=== PATIENT | female | born 1930 | race Caucasian/White ===

== ENCOUNTER 2020-08-08 17:30 | Emergency (ER) | payer MEDICARE, BC ==
--- NOTE | 2020-08-08 18:02 | EDM.PDOC ---
ED HPI GENERAL MEDICAL PROBLEM - General Chief Complaint: Abdominal Pain Stated Complaint: VOMITING/DIARRHEA/BODY ACHES Time Seen by Provider: 08/08/20 18:01 Source of Information: Reports: Patient History Limitations: Reports: No Limitations - History of Present Illness INITIAL COMMENTS - FREE TEXT/NARRATIVE: 89-year-old female presents to the ED with 2 problems. She states that she believes she overdid it by working fairly long hours in the kitchen a few days ago and created low back pain. She is currently experiencing pain in her mid back which is constant and not be made better by rest standing or lying. She states she could not stay in bed last night and had to be in the easy chair the last 2 nights. She decided that she needed to come to the hospital because of persistent back pain an hour or so ago. She called her son to come and pick her up and as she was getting ready I out of her pajamas and into clothing to come to the hospital she experienced nausea and vomiting and then had brown watery diarrhea x1. She has not had much to eat or drink today either. She is on Prolia but denies ever being told that she had any compression fractures in her back. She describes the pain as constant and burning in nature. She cannot say 1 side is necessarily worse than the other. She states she has not been out of the house for the last few days and definitely has not been exposed to any bad food. Onset: Sudden Onset Date: 08/06/20 Duration: Day(s):, Constant, Getting Worse Location: Reports: Back (Lower back pain), Other (Sudden onset of nausea and vomiting and diarrhea stool prior to coming to the ED.) Quality: Reports: Ache, Burning Severity: Moderate (78 of the 10.) Improves with: Reports: None Worsens with: Reports: None Context: Reports: Other (Spontaneous occurrence of). Denies: Activity, Exercise, Lifting, Sick Contact, Trauma Associated Symptoms: Reports: Nausea/Vomiting (Sudden onset of nausea and vomiting of bilious material prior to coming to the hospital followed shortly thereafter by brown watery diarrhea. No blood). Denies: Confusion ( mid low back pain), Chest Pain, Cough, cough w sputum, Diaphoresis, Fever/Chills, Headaches, Loss of Appetite, Malaise Treatments RELAY MAN: Reports: Acetaminophen Generalized Pain Score (Numeric/FACES): 5 - Related Data Allergies Allergy/AdvReac Type Severity Reaction Status Date / Time oxycodone Allergy Confusion Verified 08/08/20 17:42 Home Meds: Home Meds Acetaminophen [Tylenol Extra Strength] 1,000 mg PO BEDTIME PRN 08/08/20 [History] Acetaminophen/oxyCODONE [Percocet 325-5 MG] 1 each PO Q6H #15 tab 08/08/20 [Rx] Budesonide [Entocort EC] 3 mg PO DAILY 08/08/20 [History] Calcium Phosphate Dibas/Vit D3 [Vitamin Y0-Nzchsur-Edla Tablet] 1 each PO DAILY 08/08/20 [History] Celecoxib 200 mg PO BID 08/08/20 [History] Cetirizine HCl [Zyrtec] 10 mg PO DAILY 08/08/20 [History] Citalopram Hydrobromide [Celexa] 20 mg PO DAILY 08/08/20 [History] Denosumab [Prolia] 1 dose SUBCUT ASDIRECTED 08/08/20 [History] Ferrous Sulfate 325 mg PO ASDIRECTED 08/08/20 [History] Gabapentin [Neurontin] 600 mg PO TID 08/08/20 [History] Levothyroxine Sodium [Levothyroxine] 100 mcg PO DAILY 08/08/20 [History] Magnesium Oxide [Magnesium] 400 mg PO DAILY 08/08/20 [History] Omeprazole 20 mg PO BIDAC 08/08/20 [History] Ondansetron [Zofran] 4 mg BUCCAL Q6H PRN #8 tab 08/08/20 [Rx] Zolpidem Tartrate 5 mg PO BEDTIME PRN 08/08/20 [History] carvediloL [Carvedilol] 3.125 mg PO BID 08/08/20 [History] dilTIAZem HCL [Cardizem] 120 mg PO DAILY 08/08/20 [History] valACYclovir [Valtrex] 1,000 mg PO TID #21 tab 08/08/20 [Rx] Past Medical History HEENT History: Reports: Other (See Below) Other HEENT History: glasses Respiratory History: Reports: COPD Gastrointestinal History: Reports: Cholelithiasis Genitourinary History: Reports: Renal Calculus [employer] History: Reports: Musculoskeletal History: Reports: Osteoarthritis Dermatologic History: Reports: Other (See Below) (Patient has had a bout of shingles involving her right upper shoulder and arm about 4 years ago.) - Past Surgical History GI Surgical History: Reports: Appendectomy, Cholecystectomy, Other (See Below) (Patient has had part of her bowel removed for unknown reason. She states she is also had surgery for a bleeding duodenal ulcer.) Female Surgical History: Reports: Hysterectomy, Salpingo-Oophorectomy Musculoskeletal Surgical History: Reports: Other (See Below) Other Musculoskeletal Surgeries/Procedures:: r hip repair Social & Family History - Tobacco Use Tobacco Use Status *Q: Never Tobacco User Second Hand Smoke Exposure: No - Caffeine Use Caffeine Use: Reports: Coffee - Recreational Drug Use Recreational Drug Use: No - Living Situation & Occupation Living situation: Reports: , Alone Occupation: Retired ED ROS GENERAL - Review of Systems Review Of Systems: See Below Constitutional: Reports: Malaise, Weakness, Fatigue, Decreased Appetite. Denies: Fever, Chills HEENT: Reports: Glasses Respiratory: Reports: Shortness of Breath. Denies: Wheezing (At times usually with exertion.), Pleuritic Chest Pain, Cough Cardiovascular: Reports: Blood Pressure Problem. Denies: Chest Pain, Claudication, Dyspnea on Exertion, Edema, Lightheadedness, Orthopnea, Palpitations Endocrine: Reports: Fatigue GI/Abdominal: Reports: Constipation, Diarrhea (Occasional problems with constipation. Diarrhea today.), Nausea, Vomiting (Nausea and vomiting x1 of bilious material just prior to coming to the ED.) : Reports: Frequency, Incontinence (Occasional urge and stress induced incontinence.) Musculoskeletal: Reports: Back Pain (2 to 3-day history of constant aching mid back without any known injuries.), Joint Pain (He sips neck at times.) Skin: Reports: No Symptoms Neurological: Reports: No Symptoms Psychiatric: Reports: No Symptoms Hematologic/Lymphatic: Reports: No Symptoms Immunologic: Reports: No Symptoms ED EXAM, GI/ABD - Physical Exam Exam: See Below Exam Limited By: No Limitations General Appearance: Alert, WD/WN, No Apparent Distress, Other (Temperature is 35.9 degrees. Heart rate 95 and sinus. Respiratory was 20 with O2 sats of 97% on room air. BP 160/94) Eyes: Bilateral: Normal Appearance (Mild blepharal pallor. No scleral icterus.) Throat/Mouth: Normal Inspection, Normal Oropharynx, Other Head: Atraumatic, Normocephalic (Tongue is mildly dry and coated.) Neck: Normal Inspection, Supple, Non-Tender, Full Range of Motion. No: Carotid Bruit, Lymphadenopathy (L), Lymphadenopathy (R) Respiratory/Chest: No Respiratory Distress, Lungs Clear, Normal Breath Sounds, No Accessory Muscle Use, Decreased Breath Sounds (Breath sounds are mildly diminished to the lower 20% lung vital bilaterally.) Cardiovascular: Regular Rate, Rhythm, No Edema, No Gallop, No Murmur, No Rub. No: Normal Peripheral Pulses ( No adventitial sounds appreciated.) GI/Abdominal Exam: Soft, Non-Tender, No Organomegaly, No Abnormal Bruit, No Mass, Pelvis Stable, Abnormal Bowel Sounds (Bowel sounds are little hyperactive throughout the abdomen.), Other (She also reports that she did have a segment of small bowel removed at one time . She cannot remember the reason why but it was not for cancer). No: Guarding, Rigid, Rebound Back Exam: Other (On inspection of her back patient has new onset vesicles of shingles that do past slightly across the midline in the thoracic 9 and 10 dermatome worse on the right side. Lesions do not expand to her right upper abdomen yet.) Extremities: Normal Inspection, Normal Range of Motion, Non-Tender, No Pedal Edema, Other Neurological: Alert (Evidence of osteoarthritic changes both hips and knees.), Oriented, CN II-XII Intact, Normal Cognition Psychiatric: Normal Affect, Normal Mood Skin Exam: Warm, Dry, Zoster-Like Rash (Patient has herpes zoster rash right mid back in the distribution of T9-T10 dermatome to the right side. One lesion does cross the midline which is always concerning for possible underlying malignancy. Secondly she reports this is her second bout of shingles in the last 4 years.) Course - Vital Signs Last Recorded V/S: Last Vital Signs Temp 35.9 C L 08/08/20 17:44 Pulse 95 08/08/20 17:44 Resp 20 08/08/20 17:44 BP 160/94 H 08/08/20 17:44 Pulse Ox 97 08/08/20 17:44 - Orders/Labs/Meds Orders: Active Orders 24 hr Category Date Time Status COMPREHENSIVE METABOLIC PN,CMP [CHEM] Stat Lab 08/08/20 18:00 Received CRP [C-REACTIVE PROTEIN] [CHEM] Stat Lab 08/08/20 18:00 Received MAGNESIUM [CHEM] Stat Lab 08/08/20 18:00 Received TROPONIN I [CHEM] Stat Lab 08/08/20 18:00 Received URINALYSIS W/MICROSCOPIC [UA W/MICROSCOPIC] [URIN] Stat Lab 08/08/20 17:49 Results Dextrose 5%-0.9% NaCl [Dextrose 5%-Normal Saline] 1,000 Med 08/08/20 18:30 Active ml IV ASDIRECTED Medication Orders Dextrose/Sodium Chloride (Dextrose 5%-Normal Saline) 1,000 mls @ 500 mls/hr IV ASDIRECTED AGUSTÍN Last Admin: 08/08/20 18:24 Dose: 500 mls/hr Documented by: MARLON Labs: Laboratory Tests 08/08/20 08/08/20 Range/Units 17:49 18:00 WBC 10.18 H (3.98-10.04) K/mm3 RBC 4.58 (3.98-5.22) M/mm3 Hgb 13.2 (11.2-15.7) gm/dl Hct 41.4 (34.1-44.9) % MCV 90.4 (79.4-94.8) fl MCH 28.8 (25.6-32.2) pg MCHC 31.9 L (32.2-35.5) g/dl RDW Std Deviation 48.6 H (36.4-46.3) fL Plt Count 209 (182-369) K/mm3 MPV 9.2 L (9.4-12.3) fl Neut % (Auto) 67.1 (34.0-71.1) % Lymph % (Auto) 21.0 (19.3-51.7) % Reynolds % (Auto) 10.6 (4.7-12.5) % Eos % (Auto) 0.6 L (0.7-5.8) Baso % (Auto) 0.2 (0.1-1.2) % Neut # (Auto) 6.83 H (1.56-6.13) K/mm3 Lymph # (Auto) 2.14 (1.18-3.74) K/mm3 Reynolds # (Auto) 1.08 H (0.24-0.36) K/mm3 Eos # (Auto) 0.06 (0.04-0.36) K/mm3 Baso # (Auto) 0.02 (0.01-0.08) K/mm3 Urine Color Yellow (Yellow) Urine Appearance Clear (Clear) Urine pH 7.0 (5.0-8.0) Ur Specific [place] 1.020 (1.005-1.030) Urine Protein 1+ H (Negative) Urine Glucose (UA) Negative (Negative) Urine Ketones Negative (Negative) Urine Occult Blood Negative (Negative) Urine Nitrite Positive H (Negative) Urine Bilirubin Negative (Negative) Urine Urobilinogen 0.2 (0.2-1.0) Ur Leukocyte Esterase Negative (Negative) Meds: Medications Generic Name Dose Route Start Last Admin Trade Name Freq PRN Reason Stop Dose Admin Dextrose/Sodium Chloride 1,000 mls @ 500 mls/hr 08/08/20 18:30 08/08/20 18:24 Dextrose 5%-Normal Saline IV 500 mls/hr ASDIRECTED AGUSTÍN Administration Discontinued Medications Generic Name Dose Route Start Last Admin Trade Name Freq PRN Reason Stop Dose Admin Hydromorphone HCl 0.25 mg 08/08/20 18:17 08/08/20 18:25 Hydromorphone 0.5 Mg/0.5 Ml Syringe IVPUSH 08/08/20 18:18 0.25 mg ONETIME ONE Administration Ondansetron HCl 4 mg 08/08/20 18:17 08/08/20 18:24 Ondansetron 4 Mg/2 Ml Sdv IVPUSH 08/08/20 18:18 4 mg ONETIME ONE Administration - Radiology Interpretation Free Text/Narrative:: 89-year-old female presents to the ED for evaluation of persistent mid back pain for the last 2 to 3 days. She felt she overdid it in the kitchen by working too hard making meals for her sons 3 days ago. At present she no position is comfortable. She could not get comfortable in bed last night and spent the night in the easy chair but which did not relieve her pain either. She decided to come to the hospital and call one of her sons to bring her to the hospital this evening. She states while she was getting ready to come to the hospital she suddenly had to vomit of bilious material without blood and then she had a loose watery diarrhea stool. Again no blood. On examination she has in a benign abdomen with very active bowel sounds. On examination of her back she has new onset vesicles of shingles in the T9-T10 dermatome on the right side. One lesion does cross the midline to the left side of the spine. Plan she will be given IV D5 normal saline at 500 mils an hour. She will be given Zofran 4 mg IV for nausea relief and 0.25 mg of Dilaudid for back pain relief. The plan ultimately will be to send her home with Zofran 4 mg sublingual every 6 hours. For nausea relief if so needed. Plan will be to place her on valacyclovir 1 g 3 times daily for 1 week and low-dose pain medication such as Percocet 5/325 mg strength for pain relief in her back. Diet will be primarily clear fluids and lactose-free. Plan a urinalysis CBC CRP and will be ordered. - Re-Assessments/Exams Free Text/Narrative Re-Assessment/Exam: 08/08/20 18:55 White count is 10.18 slightly elevated. There is 67% neutrophils on the auto differential. Hemoglobin is 13.2 with hematocrit of 41.4. Platelet count 209,000. Sodium is slightly low at 132 with a potassium of 4.0. Chloride 95 with a bicarb of 28. Anion gap is 13.0 BUN is 26 with a creatinine of 1.0 and a GFR of 52. BUN/creatinine ratio is slightly elevated at 26.0. Glucose is 128. Calcium is 8.9. Magnesium slightly low at 1.7. Liver function is normal. Troponin I is less than 0.034. CRP is less than 0.2. Total protein is 6.8 with a albumin fraction of 3.7. Urinalysis shows positive nitrates 1+ protein and many bacteria but leukocyte esterase is negative and there are no white cells on the micro. 08/08/20 19:07 I was able to discuss the findings with the patient and her son who is in the room with her at this time. The plan will be to place her on a relatively clear fluid diet avoiding dairy products until stools are formed back up. She is slightly low on her sodium at 132 and she does not like Gatorade or Powerade. She prefers to try a combination of tomato juice and orange juice with which will likely work to suffice for electrolyte replacement. Plan will be to place her on valacyclovir 1 g 3 times daily for the next 7 days. Zofran 4 mg under the tongue every 6 hours as needed for nausea or vomiting relief. Percocet 5/325 mg strength 1/2 to 1 tablet every 4-6 hours as necessary for back pain which should also slow down any further diarrhea. Departure - Departure Time of Disposition: 19:08 Disposition: Home, Self-Care 01 Condition: Fair Clinical Impression: Gastroenteritis Back pain Qualifiers: Back pain location: thoracic back pain Chronicity: acute Back pain laterality: right Qualified Code(s): M54.6 - Pain in thoracic spine Herpes zoster Qualifiers: Herpes zoster complications: without complications Qualified Code(s): B02.9 - Zoster without complications - Discharge Information *PRESCRIPTION DRUG MONITORING PROGRAM REVIEWED*: Not Applicable *COPY OF PRESCRIPTION DRUG MONITORING REPORT IN PATIENT RACHID: Not Applicable Prescriptions: Acetaminophen/oxyCODONE [Percocet 325-5 MG] 1 each PO Q6H #15 tab valACYclovir [Valtrex] 1,000 mg PO TID #21 tab Ondansetron [Zofran] 4 mg BUCCAL Q6H PRN #8 tab PRN Reason: nausea or vomiting Instructions: Viral Gastroenteritis, Adult, [id number], Shingles, Diarrhea, Adult, Pain Medicine Instructions, [id number] Referrals: Timi Casanova MD [Primary Care Provider] - Forms: ED Department Discharge Additional Instructions: Evaluation in the emergency room today in regards to persistent mid low back pain for the last 2 to 3 days. No position is comfortable. Development of nausea vomiting and one diarrhea stool just prior to coming into the hospital this evening. No associated fever or other signs of illness identified. Lab work done through the emergency room reveals no abnormalities or signs of infection including the urinalysis which was normal. It is suspect you may have a viral gastroenteritis or simply this may have occurred from not having much to eat or drink so far today. The cause of your back pain was identified to be shingles particularly to the right side of your mid back in the distribution of thoracic 9 and thoracic 10 dermatome. You may get further skin lesions around the side of your chest and headed down towards the umbilicus or bellybutton over the next few days. No tropical medicine is to be a placed on these lesions. They will break out for period of about a week before they crust over. You are considered contagious to others if the lesions are oozing fluid. It is usually reynoso to wear a T-shirt and then change it every day. You were treated with a half a liter of IV fluids in the ED to rehydrate you. You received a small dose of pain medication for your back pain called Dilaudid 0.025 mg and medicine Zofran intravenously for nausea relief. Diet should be clear fluids. This should include juices such as tomato juice or orange juice as you suggested or Gatorade or Powerade diluted one third with water and two thirds Gatorade or Powerade usually 4 ounces sipped per hour will prevent dehydration if diarrhea and vomiting persist. Medications are to be valacyclovir 1 g tablet 3 times daily for the next week for the shingles rash. It is primarily used to prevent the long-term pain that it can occur from shingles called postherpetic neuralgia. Pain medicine is to be Percocet 5/325 mg strength 1/2 to 1 tablet every 6 hours as necessary for pain relief in your back. This usually also will slow down diarrhea. Zofran 4 mg can be taken under your tongue every 6 hours if needed for further nausea or vomiting relief. Follow-up with personal physician if any further problems occur. Expect back pain to slowly get better over the next 10 to 14 days. I would suggest follow-up with your primary care physician in about 7 to 10 days time. Sepsis Event Note (ED) - Evaluation Sepsis Screening Result: No Definite Risk - Focused Exam Vital Signs: Vital Signs Temp Pulse Resp BP Pulse Ox 08/08/20 17:44 35.9 C L 95 20 160/94 H 97 - My Orders Last 24 Hours: My Active Orders 08/08/20 17:49 URINALYSIS W/MICROSCOPIC [UA W/MICROSCOPIC] [URIN] Stat 08/08/20 18:00 COMPREHENSIVE METABOLIC PN,CMP [CHEM] Stat CRP [C-REACTIVE PROTEIN] [CHEM] Stat MAGNESIUM [CHEM] Stat TROPONIN I [CHEM] Stat 08/08/20 18:30 Dextrose 5%-0.9% NaCl [Dextrose 5%-Normal Saline] 1,000 ml IV ASDIRECTED - Assessment/Plan Last 24 Hours: My Active Orders 08/08/20 17:49 URINALYSIS W/MICROSCOPIC [UA W/MICROSCOPIC] [URIN] Stat 08/08/20 18:00 COMPREHENSIVE METABOLIC PN,CMP [CHEM] Stat CRP [C-REACTIVE PROTEIN] [CHEM] Stat MAGNESIUM [CHEM] Stat TROPONIN I [CHEM] Stat 08/08/20 18:30 Dextrose 5%-0.9% NaCl [Dextrose 5%-Normal Saline] 1,000 ml IV ASDIRECTED
[2020-08-08] MEDS ORDERED: HYDROmorphone 0.5 MG/0.5 ML Syringe IVPUSH ONE (18:17)
[2020-08-08] MEDS ORDERED: Ondansetron 4 MG/2 ML SDV IVPUSH ONE (18:17)
[2020-08-08] MEDS ORDERED: Dextrose 5%-0.9% NaCl 1,000 ML IV SCH (18:30)
== END 2020-08-08 19:30 | disposition home or self-care (01) ==
LOC: JD.ED 17:30
DX: K52.9 Noninfective gastroenteritis and colitis, unspecified (principal); M54.6 Pain in thoracic spine; B02.9 Zoster without complications; Z88.5 Allergy status to narcotic agent; Z79.899 Other long term (current) drug therapy
CPT/HCPCS: 36415; 80053; 81001; 83735; 84484; 85025; 86140; 96374; 96375; 99284; J1170; J2405; J7042

== ENCOUNTER 2020-12-06 21:22 | Emergency (ER) | payer MEDICARE, BC ==
[2020-12-06] MEDS ORDERED: Ondansetron 4 MG/2 ML SDV IVPUSH ONE (23:59)
[2020-12-07] MEDS ORDERED: HYDROmorphone 0.5 MG/0.5 ML Syringe IVPUSH ONE (00:01)
--- NOTE | 2020-12-07 00:05 | EDM.PDOC ---
ED HPI GENERAL MEDICAL PROBLEM - General Chief Complaint: Abdominal Pain Stated Complaint: HEADACHE/STOMACH PAIN/NAUSEA Time Seen by Provider: 12/06/20 23:44 Source of Information: Reports: Patient History Limitations: Reports: No Limitations - History of Present Illness INITIAL COMMENTS - FREE TEXT/NARRATIVE: Mrs. Dumont is a very pleasant 89-year-old woman who now presents the ED stating that she developed a headache and nausea around 19:00 tonight, shortly after eating dinner at 18:00, then developed generalized abdominal pain and bilateral hand pain about 2 hours ago. She describes the abdominal pain as "nagging" in character. She states that it is constant, and she has not identified any modifiers. She denies having associated chest pain, palpitations, cough, dy spnea, vomiting, constipation, diarrhea, or urinary symptoms. The patient states that she had similar symptoms a few months ago, and was admitted to this hospital. She does not recall what the diagnosis was, but her symptoms resolved on their own. Review of prior medical records finds that the patient was seen in this ED on 08/08/2020 with a complaint of low back pain followed by nausea, vomiting, and diarrhea. There is no mention of abdominal pain, and her abdomen was nontender on examination. She was not admitted to the hospital. The only other time that the patient was here was in March 2013. Here in the ED tonight, the patient's initial BP is found to be modestly elevated at 158/95, otherwise, she is hemodynamically stable, afebrile, saturating 95% on room air. She appears to be comfortable, no acute distress. Prior to tonight, the patient denies having a recent fever, chills, sore throat, ear pain, nasal or sinus congestion, cough, dyspnea, chest pain, palpitations, nausea, vomiting, constipation, diarrhea, abdominal pain, urinary symptoms, recent weight gain or weight loss, recent bloody bowel movements or black bowel movements, recent joint aches, headaches, or rashes. I reviewed the PMHx/PSHx/SocHx, which was reviewed with the patient by the RN. The patient's PCP is Dr. Nishant Niño, although she also sees Dr. Timi Casanova. She has received 2 COVID vaccinations. Abdomen Pain Score (Numeric/FACES): 5 - Related Data Allergies Allergy/AdvReac Type Severity Reaction Status Date / Time oxycodone Allergy Confusion Verified 12/06/20 21:51 Home Meds: Home Meds Acetaminophen [Tylenol Extra Strength] 1,000 mg PO BEDTIME PRN 08/08/20 [History] Acetaminophen/oxyCODONE [Percocet 325-5 MG] 1 each PO Q6H #15 tab 08/08/20 [Rx] Budesonide [Entocort EC] 3 mg PO DAILY 08/08/20 [History] Calcium Phosphate Dibas/Vit D3 [Vitamin C2-Uvevvji-Nnnm Tablet] 1 each PO DAILY 08/08/20 [History] Celecoxib 200 mg PO BID 08/08/20 [History] Cetirizine HCl [Zyrtec] 10 mg PO DAILY 08/08/20 [History] Citalopram Hydrobromide [Celexa] 20 mg PO DAILY 08/08/20 [History] Denosumab [Prolia] 1 dose SUBCUT ASDIRECTED 08/08/20 [History] Ferrous Sulfate 325 mg PO ASDIRECTED 08/08/20 [History] Gabapentin [Neurontin] 600 mg PO TID 08/08/20 [History] Levothyroxine Sodium [Levothyroxine] 100 mcg PO DAILY 08/08/20 [History] Magnesium Oxide [Magnesium] 400 mg PO DAILY 08/08/20 [History] Omeprazole 20 mg PO BIDAC 08/08/20 [History] Ondansetron [Zofran] 4 mg BUCCAL Q6H PRN #8 tab 08/08/20 [Rx] Zolpidem Tartrate 5 mg PO BEDTIME PRN 08/08/20 [History] carvediloL [Carvedilol] 3.125 mg PO BID 08/08/20 [History] dilTIAZem HCL [Cardizem] 120 mg PO DAILY 08/08/20 [History] Past Medical History HEENT History: Reports: Other (See Below) Other HEENT History: glasses Respiratory History: Reports: COPD Gastrointestinal History: Reports: Cholelithiasis Genitourinary History: Reports: Renal Calculus [employer]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: Musculoskeletal History: Reports: Osteoarthritis Dermatologic History: Reports: Other (See Below) - Infectious Disease History Infectious Disease History: Reports: Shingles - Past Surgical History GI Surgical History: Reports: Appendectomy, Cholecystectomy, Other (See Below) Female Surgical History: Reports: Hysterectomy, Salpingo-Oophorectomy Musculoskeletal Surgical History: Reports: Other (See Below) Other Musculoskeletal Surgeries/Procedures:: r hip repair Social & Family History - Tobacco Use Tobacco Use Status *Q: Former Tobacco User Years of Tobacco use: 29 Packs/Tins Daily: 0.5 Month/Year Tobacco Last Used: Quit 1982 Tobacco Use Comment: Started smoking 1953 - Caffeine Use Caffeine Use: Reports: Coffee - Alcohol Use Alcohol Use History: No - Recreational Drug Use Recreational Drug Use: No - Living Situation & Occupation Living situation: Reports: , with Family (Nephew) Occupation: Retired ED ROS GENERAL - Review of Systems Review Of Systems: Comprehensive ROS is negative, except as noted in HPI. ED EXAM, GI/ABD - Physical Exam Exam: See Below Exam Limited By: No Limitations General Appearance: Alert, WD/WN, No Apparent Distress Eyes: Bilateral: Normal Appearance, EOMI Ears: Normal External Exam, Hearing Grossly Normal Nose: Normal Inspection Throat/Mouth: Normal Inspection, Normal Lips, Normal Voice, No Airway Compromise Head: Atraumatic, Normocephalic Neck: Normal Inspection, Full Range of Motion Respiratory/Chest: No Respiratory Distress, Lungs Clear, Normal Breath Sounds, No Accessory Muscle Use Cardiovascular: Normal Peripheral Pulses, Regular Rate, Rhythm, No Edema, No Gallop, No JVD, No Murmur, No Rub GI/Abdominal Exam: Normal Bowel Sounds, Soft, No Organomegaly, No Distention, No Abnormal Bruit, No Mass, Tender (Mild to moderate, generalized, non-focal) Back Exam: Normal Inspection, Full Range of Motion, NT Extremities: Normal Inspection, Normal Range of Motion, No Pedal Edema, Normal Capillary Refill Neurological: Alert, Oriented, Normal Cognition, No Motor/Sensory Deficits Psychiatric: Normal Affect Skin Exam: Warm, Dry, Intact, Normal Color, No Rash Course - Vital Signs Last Recorded V/S: Last Vital Signs Temp 36.6 C 12/06/20 21:47 Pulse 84 12/06/20 21:47 Resp 14 12/06/20 21:47 BP 158/95 H 12/06/20 21:47 Pulse Ox 95 12/06/20 21:47 - Orders/Labs/Meds Orders: Active Orders 24 hr Category Date Time Status Abdomen Pelvis w Cont [CT] Stat Exams 12/06/20 23:59 Taken Sodium Chloride 0.9% [Normal Saline] 1,000 ml Med 12/07/20 00:15 Active IV ASDIRECTED Medication Orders Sodium Chloride (Normal Saline) 1,000 mls @ 100 mls/hr IV ASDIRECTED AGUSTÍN Last Admin: 12/07/20 00:08 Dose: 100 mls/hr Documented by: RADHA Labs: Laboratory Tests 12/07/20 12/07/20 12/07/20 Range/Units 00:04 00:04 00:18 WBC 6.90 (3.98-10.04) K/mm3 RBC 3.79 L (3.98-5.22) M/mm3 Hgb 10.9 L D (11.2-15.7) gm/dl Hct 34.9 (34.1-44.9) % MCV 92.1 (79.4-94.8) fl MCH 28.8 (25.6-32.2) pg MCHC 31.2 L (32.2-35.5) g/dl RDW Std Deviation 45.1 (36.4-46.3) fL Plt Count 248 (182-369) K/mm3 MPV 9.0 L (9.4-12.3) fl Neutrophils % (Manual) 66 H (40-60) % Band Neutrophils % 0 (0-10) % Lymphocytes % (Manual) 20 (20-40) % Atypical Lymphs % 0 % Monocytes % (Manual) 12 H (2-10) % Eosinophils % (Manual) 1 (0.7-5.8) % Basophils % (Manual) 1 (0.1-1.2) Platelet Estimate Adequate Hypochromasia 1+ slight Poikilocytosis 1+ slight Anisocytosis 1+ slight Ovalocytes 1+ slight RBC Morph Comment Abnormal Sodium 136 (136-145) mEq/L Potassium 4.8 (3.5-5.1) mEq/L Chloride 103 (98-107) mEq/L Carbon Dioxide 25 (21-32) mEq/L Anion Gap 12.8 (5-15) BUN 30 H (7-18) mg/dL Creatinine 1.0 (0.55-1.02) mg/dL Est Cr Clr Drug Dosing 36.40 mL/min Estimated GFR (MDRD) 52 (>60) mL/min BUN/Creatinine Ratio 30.0 H (14-18) Glucose 112 H (70-99) mg/dL Calcium 9.1 (8.5-10.1) mg/dL Magnesium 1.8 (1.8-2.4) mg/dL Total Bilirubin 0.3 (0.2-1.0) mg/dL AST 14 L (15-37) U/L ALT 14 (14-59) U/L Alkaline Phosphatase 45 L (46-116) U/L Troponin I < 0.017 (0.00-0.056) ng/mL Total Protein 6.6 (6.4-8.2) g/dl Albumin 3.6 (3.4-5.0) g/dl Globulin 3.0 gm/dL Albumin/Globulin Ratio 1.2 (1-2) Lipase 405 H (73-393) U/L Urine Color Light yellow (Yellow) Urine Appearance Clear (Clear) Urine pH 7.0 (5.0-8.0) Ur Specific [place] 1.025 (1.005-1.030) Urine Protein Negative (Negative) Urine Glucose (UA) Negative (Negative) Urine Ketones Negative (Negative) Urine Occult Blood Negative (Negative) Urine Nitrite Negative (Negative) Urine Bilirubin Negative (Negative) Urine Urobilinogen 0.2 (0.2-1.0) Ur Leukocyte Esterase Negative (Negative) Urine RBC 0-5 (0-5) /hpf Urine WBC 0-5 (0-5) /hpf Ur Squamous Epith Cells Not seen (0-5) /hpf Urine Bacteria Moderate H (FEW) /hpf Urine Mucus Not seen (FEW) /hpf SARS-CoV-2 RNA (LEI) (NEGATIVE) 12/07/20 Range/Units 00:29 WBC (3.98-10.04) K/mm3 RBC (3.98-5.22) M/mm3 Hgb (11.2-15.7) gm/dl Hct (34.1-44.9) % MCV (79.4-94.8) fl MCH (25.6-32.2) pg MCHC (32.2-35.5) g/dl RDW Std Deviation (36.4-46.3) fL Plt Count (182-369) K/mm3 MPV (9.4-12.3) fl Neutrophils % (Manual) (40-60) % Band Neutrophils % (0-10) % Lymphocytes % (Manual) (20-40) % Atypical Lymphs % % Monocytes % (Manual) (2-10) % Eosinophils % (Manual) (0.7-5.8) % Basophils % (Manual) (0.1-1.2) Platelet Estimate Hypochromasia Poikilocytosis Anisocytosis Ovalocytes RBC Morph Comment Sodium (136-145) mEq/L Potassium (3.5-5.1) mEq/L Chloride (98-107) mEq/L Carbon Dioxide (21-32) mEq/L Anion Gap (5-15) BUN (7-18) mg/dL Creatinine (0.55-1.02) mg/dL Est Cr Clr Drug Dosing mL/min Estimated GFR (MDRD) (>60) mL/min BUN/Creatinine Ratio (14-18) Glucose (70-99) mg/dL Calcium (8.5-10.1) mg/dL Magnesium (1.8-2.4) mg/dL Total Bilirubin (0.2-1.0) mg/dL AST (15-37) U/L ALT (14-59) U/L Alkaline Phosphatase (46-116) U/L Troponin I (0.00-0.056) ng/mL Total Protein (6.4-8.2) g/dl Albumin (3.4-5.0) g/dl Globulin gm/dL Albumin/Globulin Ratio (1-2) Lipase (73-393) U/L Urine Color (Yellow) Urine Appearance (Clear) Urine pH (5.0-8.0) Ur Specific [place] (1.005-1.030) Urine Protein (Negative) Urine Glucose (UA) (Negative) Urine Ketones (Negative) Urine Occult Blood (Negative) Urine Nitrite (Negative) Urine Bilirubin (Negative) Urine Urobilinogen (0.2-1.0) Ur Leukocyte Esterase (Negative) Urine RBC (0-5) /hpf Urine WBC (0-5) /hpf Ur Squamous Epith Cells (0-5) /hpf Urine Bacteria (FEW) /hpf Urine Mucus (FEW) /hpf SARS-CoV-2 RNA (LEI) Negative (NEGATIVE) Meds: Medications Generic Name Dose Route Start Last Admin Trade Name Freq PRN Reason Stop Dose Admin Sodium Chloride 1,000 mls @ 100 mls/hr 12/07/20 00:15 12/07/20 00:08 Normal Saline IV 100 mls/hr ASDIRECTED AGUSTÍN Administration Discontinued Medications Generic Name Dose Route Start Last Admin Trade Name Shanda PRN Reason Stop Dose Admin Diatrizoate Meglum/Diatrizoate Sod 120 ml 12/07/20 00:52 12/07/20 01:46 Diatrizoate Meglumine/Diatrizoate Sodium 37% 120 Ml Bottle PO 12/07/20 00:53 120 ml ONETIME ONE Administration Hydromorphone HCl 0.5 mg 12/07/20 00:01 12/07/20 00:19 Hydromorphone 0.5 Mg/0.5 Ml Syringe IVPUSH 12/07/20 00:02 0.5 mg ONETIME ONE Administration Iopamidol 100 ml 12/07/20 00:52 12/07/20 01:46 Iopamidol 612 Mg/Ml 100 Ml Bottle IVPUSH 12/07/20 00:53 100 ml ONETIME ONE Administration Ondansetron HCl 4 mg 12/06/20 23:59 12/07/20 00:08 Ondansetron 4 Mg/2 Ml Sdv IVPUSH 12/07/20 00:00 4 mg ONETIME ONE Administration Ondansetron HCl 4 mg 12/07/20 01:53 12/07/20 02:01 Ondansetron 4 Mg/2 Ml Sdv IVPUSH 12/07/20 01:54 4 mg ONETIME ONE Administration Sodium Chloride 10 ml 12/07/20 00:52 12/07/20 01:47 Sodium Chloride 0.9% 10 Ml Sdv FLUSH 12/07/20 00:53 10 ml ONETIME ONE Administration - Re-Assessments/Exams Free Text/Narrative Re-Assessment/Exam: 12/07/20 00:02 I have ordered a work-up and includes numerous blood tests, a urinalysis by quick catheter, and a CT of the abdomen and pelvis with oral and IV contrast. In the event that the patient requires admission to the hospital or transfer to an outside facility, I have also ordered a swab for the SARS-CoV-2 virus. In the meantime, the patient will be treated with judicious IV Dilaudid, IV Zofran, and IV fluid. 12/07/20 01:58 The patient's CBC is remarkable for a Hgb slightly depressed at 10.9, with a Hct within normal limits at 34.9, and the remainder of her CBC being unremarkable. Her CMP is remarkable for a BUN slightly elevated at 30 with a Cr within normal limits at 1.0, and slight hyperglycemia of 112, with remainder of her CMP being unremarkable. Her magnesium level is within normal limits at 1.8. Her lipase is moderately elevated at 405. Her troponin is undetectably low. Her urinalysis is remarkable for moderate bacteria, with the remainder of her urinalysis being unremarkable. Her swab for the SARS-CoV-2 virus is negative. Notified that upon return from CT, the patient began vomiting. I ordered additional Zofran. 12/07/20 03:58 CT of the abdomen and pelvis with oral and IV contrast is read by Samanta as "Dilated common duct and intrahepatic radicles but without a definite stone identified. 2. Hepatic steatosis. 3. 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 Case discussed with Dr. Barrios at 04:03. 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 She recommended an outpatient MRI, plus referral for an ERCP for a brushing and possible stent. She does not feel that any of these are urgent, therefore the patient can follow-up with Dr. Casanova this week to make arrangements. 12/07/20 04:20 Test results and my conversation with Dr. Barrios discussed with the patient. I will discharge her home with [facility] prescriptions for both [place] and Zofran. I will have the patient call Dr. Casanova's office tomorrow (Tuesday), to make an appointment to see him this week. She is to take her discharge instructions with her when she sees him, so that he can understand what the issue is. The patient also wanted me to look at a rash that she has had under her breasts and on her vulva for the past few months. She has a relatively mild case of intertriginous candidiasis. I recommended that she purchase an [id number]-dnezzba antifungal cream and apply it to the affected areas once or twice a day. I explained that fungal infections are slow-growing, and that she will likely have discomfort for the better part of a week, but she should have resolution of her symptoms within 2 weeks. Departure - Departure Time of Disposition: 04:24 Disposition: Home, Self-Care 01 Condition: Good Clinical Impression: Intertriginous candidiasis, Elevated lipase, Dilated intrahepatic bile duct - Discharge Information *PRESCRIPTION DRUG MONITORING PROGRAM REVIEWED*: Not Applicable *COPY OF PRESCRIPTION DRUG MONITORING REPORT IN PATIENT RACHID: Not Applicable Referrals: Timi Casanova MD [Primary Care Provider] - Nishant Niño MD [Ordering Only Provider] - Forms: ED Department Discharge Additional Instructions: You were seen in the emergency room after developing a headache and nausea, followed by abdominal pain and hand pain. You have also had a rash under your breasts and on your vulva for the past few months. Work-up in the ER included numerous blood tests, a urinalysis, a swab for the SARS-CoV-2 virus, and a CT of your abdomen and pelvis with oral and IV contrast. Your blood work found your lipase level to be elevated at 405, and the CT of your abdomen and pelvis found your common bile duct and some intrahepatic ducts to be elevated, while your pancreas appeared to be normal. The CT also indicated a small right-sided pleural effusion. The remainder of your work-up was unremarkable. 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 The rash is due to intertriginous candidiasis (a fungal infection). Prescriptions for the opioid pain reliever Cambridge and the antinausea medicine Zofran ODT have been provided to you via [facility]. You may take 1 to 2 tablets of Cambridge up to every 6-8 hours, as needed for pain. If you take Cambridge, do not drive for 12 hours afterwards. Cambridge may cause you to feel dizzy, lightheaded, or nauseated, so take with caution. Cambridge may also cause constipation, so consider taking a stool softener. You may dissolve 1 tablet of Zofran ODT on your tongue up to every 8 hours, as needed for nausea/vomiting. We recommend that you contact the office of your PCP, Dr. Timi Casanova, tomorrow morning, 12/08/2020 in order to make an appointment to see him this week. When you see Dr. Casanova, bring these discharge instructions with you so that he can understand what our concerns are. Dr. Casanova will want to arrange for you to undergo an MRI of your abdomen, and also arrange for an ERCP in order to get brushings of your common bile duct, and, if needed, a stent. The MRI can be done here in [place], but the ERCP will need to be done someplace else. With respect to the rash under your breasts and on your vulva, we recommend the following: Keep the areas clean with ordinary soap and water when you bathe. Thoroughly dry the areas after you bathe. Purchase an [id number]-[id number] antifungal cream, such as ketoconazole, clotrimazole, miconazole, or econazole, and apply some of the cream to the affected areas once or twice a day. As discussed, fungal infections are slow-growing, and don't go away immediately, however, you should start feeling improvement of your symptoms within a week, and the rash should be gone altogether within 2 weeks. If any other problems, please do not hesitate to return to the ER. Sepsis Event Note (ED) - Evaluation Sepsis Screening Result: No Definite Risk - Focused Exam Vital Signs: Vital Signs Temp Pulse Resp BP Pulse Ox 12/06/20 21:47 36.6 C 84 14 158/95 H 95 - My Orders Last 24 Hours: My Active Orders 12/06/20 23:59 Abdomen Pelvis w Cont [CT] Stat 12/07/20 00:15 Sodium Chloride 0.9% [Normal Saline] 1,000 ml IV ASDIRECTED - Assessment/Plan Last 24 Hours: My Active Orders 12/06/20 23:59 Abdomen Pelvis w Cont [CT] Stat 12/07/20 00:15 Sodium Chloride 0.9% [Normal Saline] 1,000 ml IV ASDIRECTED
[2020-12-07] MEDS ORDERED: Sodium Chloride 0.9% 1,000 ML IV SCH (00:15)
[2020-12-07] MEDS ORDERED: Sodium Chloride 0.9% 10 ML SDV FLUSH ONE (00:52)
[2020-12-07] MEDS ORDERED: Diatrizoate Meglumine/Diatrizoate Sodium 37% 120 ML Bottle PO ONE (00:52)
[2020-12-07] MEDS ORDERED: Iopamidol 612 MG/ML 100 ML Bottle IVPUSH ONE (00:52)
[2020-12-07] MEDS ORDERED: Ondansetron 4 MG/2 ML SDV IVPUSH ONE (01:53)
--- NOTE | 2020-12-07 15:51 | CT ---
CT abdomen and pelvis Technique: Multiple axial sections were obtained from above the dome of the diaphragm inferiorly through the pubic symphysis. Intravenous and oral contrast were utilized. Delayed images were obtained to the bladder. Reconstructed coronal and sagittal images were obtained. Comparison: Prior CT abdomen and pelvis exam of 04/10/12. Findings: Visualized lung bases show minimal right-sided pleural effusion. No acute parenchymal abnormality is seen within the visualized lung bases. Heart is enlarged. Mild intrahepatic biliary duct dilatation is seen. This is stable from prior CT exam. Slight extrahepatic biliary duct dilatation is seen. These findings are felt to be due to previous cholecystectomy. Spleen size is normal. Adrenal glands show no nodule. Pancreas shows a small cyst within the body measuring 0.9 cm. Second smaller cyst is also seen within the body measuring 7 mm. These are felt to be present on prior exam and therefore benign. Cyst is noted within the right kidney measuring 2.3 cm. Cyst is noted within the left kidney measuring 3.1 cm. These cysts are noted on prior exam but have slightly increased in size. Delayed images show contrast within the distal ureters as well as within the bladder. Abdominal aorta shows no aneurysm. No retroperitoneal adenopathy is seen. No pelvic mass or adenopathy is seen. Fat-containing hernia is noted within the lower left pelvis which has increased in size from prior exam. This hernia appears to be involving the anterior and lateral left pelvic muscles with hernia opening measuring about 3.0 cm. This fat-containing hernia measures up to 7.0 cm. No pelvic mass or adenopathy is seen. 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 Colon shows mild scattered diverticuli within the descending and sigmoid regions. No inflammatory change is seen to indicate diverticulitis. Appendix is felt to be slightly seen and normal in size. Bone window settings were reviewed which show diffuse disc space narrowing and vacuum phenomena within the spine. Spondylolisthesis is noted at L4-5 due to degenerative apophyseal change. Minimal spondylolisthesis is noted at L3-4 due to degenerative apophyseal change. Degenerative change is noted within both sacroiliac joints as well as mild degenerative change seen within the left hip. Impression: 1. Multiple findings as noted above believed to be fairly stable. 2. Small right-sided pleural effusion is noted. 3. Nothing acute is otherwise appreciated on CT study of the abdomen and pelvis. Diagnostic code #2 I agree with preliminary report from [facility], finalized on 12/07/20, 4:54 AM CDT, code 1
== END 2020-12-07 05:10 | disposition home or self-care (01) ==
LOC: JD.ED 21:22
DX: K83.8 Other specified diseases of biliary tract (principal); B37.2 Candidiasis of skin and nail; R74.8 Abnormal levels of other serum enzymes; Z88.8 Allergy status to other drugs, medicaments and biological substances; J44.9 Chronic obstructive pulmonary disease, unspecified; Z79.899 Other long term (current) drug therapy; Z90.710 Acquired absence of both cervix and uterus; Z90.49 Acquired absence of other specified parts of digestive tract; Z87.891 Personal history of nicotine dependence; Z20.822 Contact with and (suspected) exposure to COVID-19
CPT/HCPCS: 36415; 74177; 80053; 81001; 83690; 83735; 84484; 85007; 85027; 96374; 96375; 99284; J1170; J2405; J7030; Q9963; Q9967; U0002

== ENCOUNTER 2020-12-08 12:08 | Emergency (ER) | payer MEDICARE, BC ==
[2020-12-08] MEDS ORDERED: Sodium Chloride 0.9% 10 ML Syringe FLUSH PRN (12:59)
[2020-12-08] MEDS ORDERED: Sodium Chloride 0.9% 1,000 ML IV STA (12:59)
[2020-12-08] MEDS ORDERED: Ondansetron 4 MG/2 ML SDV IVPUSH ONE (12:59)
[2020-12-08] MEDS ORDERED: HYDROmorphone 0.5 MG/0.5 ML Syringe IVPUSH ONE (13:03)
--- NOTE | 2020-12-08 14:27 | CT ---
CT abdomen and pelvis Technique: Multiple axial sections were obtained from above the dome of the diaphragm inferiorly through the pubic symphysis. Intravenous and oral contrast were not utilized. Reconstructed coronal and sagittal images were obtained. Comparison: Prior CT abdomen and pelvis study of 12/06/20. Findings: Artifact is noted from pacemaker. Visualized lung bases show nothing acute. Calcification is seen within the upper liver or diaphragm which is stable from prior study. Liver shows an additional peripheral calcification anteriorly which appears stable. Other portions of the liver appear within normal limits. Spleen size is normal. Adrenal glands show no nodule. Pancreas shows a small low density lesion within the body measuring 9 mm. This appears stable from prior study. Second low density lesion was noted on previous study which is not seen currently as this is a noncontrast exam. Kidneys show scattered calcifications which are similar to previous exam. Findings are compatible with nonobstructing calculi. Cyst is noted within the lower right kidney measuring 2.7 cm. Cyst is also noted within the left kidney measuring 3.0 cm. Abdominal aorta shows atherosclerotic calcification with no aneurysm. Atherosclerotic calcification continues into the iliac vessels. No retroperitoneal adenopathy is seen. No pelvic abnormality is definitely appreciated. Some portions of the pelvis are obscured by right hip prosthesis. Diffuse diverticuli are seen within the sigmoid and descending colon. There is a fat-containing spigelian hernia seen within the left lower abdomen containing fat. Bone window settings were reviewed which show scattered degenerative change within the spine with mild spondylolisthesis noted at L3-4 and L4-5. Degenerative change is noted with the sacroiliac joints as well as mild degenerative change seen within the left hip. Impression: 1. Multiple findings as described above believed to be stable. 2. Visualized lung bases are clear. 3. Nothing acute is definitely appreciated on noncontrast CT study of the abdomen and pelvis. Diagnostic code #2
[2020-12-08] MEDS ORDERED: cefTRIAXone 1 GM in Sodium Chloride 0.9% 100 ML IV ONE (15:01)
--- NOTE | 2020-12-08 15:22 | EDM.PDOC ---
ED HPI GENERAL MEDICAL PROBLEM - General Chief Complaint: Gastrointestinal Problem Stated Complaint: FEVER/CHILLS Time Seen by Provider: 12/08/20 12:28 Source of Information: Reports: Patient, Family History Limitations: Reports: No Limitations - History of Present Illness INITIAL COMMENTS - FREE TEXT/NARRATIVE: The patient presents with abdominal pain, nausea and vomiting. This started about 3 to 4 days ago. She was seen here a couple days ago and her labs and CT looked good. She went home and still has symptoms. She has no fever, chills, cough, chest pain, shortness of breath or diarrhea. She has been able to eat and drink some but not much. Onset: Gradual Duration: Day(s): Location: Reports: Abdomen Quality: Reports: Sharp Severity: Moderate Improves with: Reports: None Worsens with: Reports: None Associated Symptoms: Reports: Nausea/Vomiting. Denies: Chest Pain, Cough, Fever/Chills, Headaches, Shortness of Breath Abdomen Pain Score (Numeric/FACES): 3 - Related Data Allergies Allergy/AdvReac Type Severity Reaction Status Date / Time oxycodone Allergy Confusion Verified 12/08/20 12:32 Home Meds: Home Meds Acetaminophen [Tylenol Extra Strength] 1,000 mg PO BEDTIME PRN 08/08/20 [History] Acetaminophen/oxyCODONE [Percocet 325-5 MG] 1 each PO Q6H #15 tab 08/08/20 [Rx] Budesonide [Entocort EC] 3 mg PO DAILY 08/08/20 [History] Calcium Phosphate Dibas/Vit D3 [Vitamin G9-Ymzpegm-Pwjr Tablet] 1 each PO DAILY 08/08/20 [History] Celecoxib 200 mg PO BID 08/08/20 [History] Cetirizine HCl [Zyrtec] 10 mg PO DAILY 08/08/20 [History] Citalopram Hydrobromide [Celexa] 20 mg PO DAILY 08/08/20 [History] Denosumab [Prolia] 1 dose SUBCUT ASDIRECTED 08/08/20 [History] Ferrous Sulfate 325 mg PO ASDIRECTED 08/08/20 [History] Gabapentin [Neurontin] 600 mg PO TID 08/08/20 [History] Levothyroxine Sodium [Levothyroxine] 100 mcg PO DAILY 08/08/20 [History] Magnesium Oxide [Magnesium] 400 mg PO DAILY 08/08/20 [History] Omeprazole 20 mg PO BIDAC 08/08/20 [History] Ondansetron [Zofran] 4 mg BUCCAL Q6H PRN #8 tab 08/08/20 [Rx] Zolpidem Tartrate 5 mg PO BEDTIME PRN 08/08/20 [History] carvediloL [Carvedilol] 3.125 mg PO BID 08/08/20 [History] dilTIAZem HCL [Cardizem] 120 mg PO DAILY 08/08/20 [History] Ondansetron [Zofran ODT] 4 mg PO Q6H PRN #20 tab.dis 12/08/20 [Rx] cephALEXin [Keflex] 500 mg PO BID #14 cap 12/08/20 [Rx] Past Medical History HEENT History: Reports: Impaired Vision Other HEENT History: glasses Respiratory History: Reports: COPD Gastrointestinal History: Reports: Cholelithiasis Genitourinary History: Reports: Renal Calculus 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: Musculoskeletal History: Reports: Osteoarthritis Dermatologic History: Reports: Other (See Below) - Infectious Disease History Infectious Disease History: Reports: Shingles - Past Surgical History GI Surgical History: Reports: Appendectomy, Cholecystectomy, Other (See Below) Female Surgical History: Reports: Hysterectomy, Salpingo-Oophorectomy Musculoskeletal Surgical History: Reports: Other (See Below) Other Musculoskeletal Surgeries/Procedures:: r hip repair Social & Family History - Tobacco Use Tobacco Use Status *Q: Former Tobacco User Used Tobacco, but Quit: Yes Month/Year Tobacco Last Used: 03/1982 - Caffeine Use Caffeine Use: Reports: Coffee - Recreational Drug Use Recreational Drug Use: No - Living Situation & Occupation Living situation: Reports: , with Family (Nephew) Occupation: Retired ED ROS GENERAL - Review of Systems Review Of Systems: See Below Constitutional: Reports: No Symptoms HEENT: Reports: No Symptoms Respiratory: Reports: No Symptoms Cardiovascular: Reports: No Symptoms Endocrine: Reports: No Symptoms GI/Abdominal: Reports: Abdominal Pain, Nausea, Vomiting. Denies: Diarrhea : Reports: No Symptoms Musculoskeletal: Reports: No Symptoms Skin: Reports: No Symptoms ED EXAM, GI/ABD - Physical Exam Exam: See Below Exam Limited By: No Limitations General Appearance: Alert, No Apparent Distress Ears: Normal External Exam Nose: Normal Inspection Head: Atraumatic, Normocephalic Neck: Normal Inspection Respiratory/Chest: No Respiratory Distress, Lungs Clear, Normal Breath Sounds Cardiovascular: Regular Rate, Rhythm, No Edema, No Murmur GI/Abdominal Exam: Soft, No Organomegaly, No Mass, Tender (Mild to moderate pain upon palpation to the lower abdomen) Course - Vital Signs Last Recorded V/S: Last Vital Signs Temp 97.8 F 12/08/20 12:28 Pulse 95 12/08/20 12:28 Resp 16 12/08/20 12:28 BP 147/90 H 12/08/20 12:28 Pulse Ox 95 12/08/20 12:28 - Orders/Labs/Meds Orders: Active Orders 24 hr Category Date Time Status Peripheral IV Care [RC] . DIRECTED Care 12/08/20 13:00 Active Sodium Chloride 0.9% [Saline Flush] Med 12/08/20 12:59 Active 10 ml FLUSH ASDIRECTED PRN cefTRIAXone [Rocephin] 1 gm Med 12/08/20 15:01 Active Sodium Chloride 0.9% [Normal Saline] 100 ml IV ONETIME ED Antiemetic Medication Reflex [OM.PC] Stat Oth 12/08/20 13:00 Ordered Peripheral IV Insertion Adult [OM.PC] Stat Oth 12/08/20 12:59 Ordered Medication Orders Ceftriaxone Sodium 1 gm/ (Sodium Chloride) 100 mls @ 200 mls/hr IV ONETIME ONE Stop: 12/08/20 15:30 Sodium Chloride (Sodium Chloride 0.9% 10 Ml Syringe) 10 ml FLUSH ASDIRECTED PRN PRN Reason: Keep Vein Open Last Admin: 12/08/20 13:05 Dose: 10 ml Documented by: NADIA Labs: Laboratory Tests 12/08/20 12/08/20 12/08/20 Range/Units 13:05 13:05 13:20 WBC 6.67 (3.98-10.04) K/mm3 RBC 3.67 L (3.98-5.22) M/mm3 Hgb 10.5 L (11.2-15.7) gm/dl Hct 33.8 L (34.1-44.9) % MCV 92.1 (79.4-94.8) fl MCH 28.6 (25.6-32.2) pg MCHC 31.1 L (32.2-35.5) g/dl RDW Std Deviation 45.1 (36.4-46.3) fL Plt Count 245 (182-369) K/mm3 MPV 9.0 L (9.4-12.3) fl Neut % (Auto) 70.8 (34.0-71.1) % Lymph % (Auto) 17.1 L (19.3-51.7) % [place] % (Auto) 11.5 (4.7-12.5) % Eos % (Auto) 0.4 L (0.7-5.8) Baso % (Auto) 0.1 (0.1-1.2) % Neut # (Auto) 4.71 (1.56-6.13) K/mm3 Lymph # (Auto) 1.14 L (1.18-3.74) K/mm3 [place] # (Auto) 0.77 H (0.24-0.36) K/mm3 Eos # (Auto) 0.03 L (0.04-0.36) K/mm3 Baso # (Auto) 0.01 (0.01-0.08) K/mm3 Sodium 139 (136-145) mEq/L Potassium 4.1 (3.5-5.1) mEq/L Chloride 103 (98-107) mEq/L Carbon Dioxide 23 (21-32) mEq/L Anion Gap 17.1 H (5-15) BUN 15 (7-18) mg/dL Creatinine 0.9 (0.55-1.02) mg/dL Est Cr Clr Drug Dosing 40.45 mL/min Estimated GFR (MDRD) 59 (>60) mL/min BUN/Creatinine Ratio 16.7 (14-18) Glucose 117 H (70-99) mg/dL Calcium 8.5 (8.5-10.1) mg/dL Magnesium 1.7 L (1.8-2.4) mg/dL Total Bilirubin 0.6 (0.2-1.0) mg/dL AST 27 (15-37) U/L ALT 27 (14-59) U/L Alkaline Phosphatase 45 L (46-116) U/L Total Protein 6.8 (6.4-8.2) g/dl Albumin 3.7 (3.4-5.0) g/dl Globulin 3.1 gm/dL Albumin/Globulin Ratio 1.2 (1-2) Amylase 71 (25-115) U/L Lipase 176 (73-393) U/L Urine Color Yellow (Yellow) Urine Appearance Slt cloudy H (Clear) Urine pH 6.0 (5.0-8.0) Ur Specific [place] > or = 1.030 (1.005-1.030) Urine Protein 1+ H (Negative) Urine Glucose (UA) Negative (Negative) Urine Ketones 2+ H (Negative) Urine Occult Blood 1+ H (Negative) Urine Nitrite Positive H (Negative) Urine Bilirubin Negative (Negative) Urine Urobilinogen 1.0 (0.2-1.0) Ur Leukocyte Esterase Negative (Negative) Urine RBC 10-20 H (0-5) /hpf Urine WBC 0-5 (0-5) /hpf Ur Squamous Epith Cells 0-5 (0-5) /hpf Urine Bacteria Many H (FEW) /hpf Urine Mucus Not seen (FEW) /hpf Meds: Medications Generic Name Dose Route Start Last Admin Trade Name Shanda PRN Reason Stop Dose Admin Ceftriaxone Sodium 1 gm/ 100 mls @ 200 mls/hr 12/08/20 15:01 Sodium Chloride IV 12/08/20 15:30 ONETIME ONE Sodium Chloride 10 ml 12/08/20 12:59 12/08/20 13:05 Sodium Chloride 0.9% 10 Ml Syringe FLUSH 10 ml ASDIRECTED PRN Administration Keep Vein Open Discontinued Medications Generic Name Dose Route Start Last Admin Trade Name Shanda PRN Reason Stop Dose Admin Hydromorphone HCl 0.25 mg 12/08/20 13:03 12/08/20 13:33 Hydromorphone 0.5 Mg/0.5 Ml Syringe IVPUSH 12/08/20 13:04 Not Given ONETIME ONE Sodium Chloride 1,000 mls @ 1,000 mls/hr 12/08/20 12:59 12/08/20 13:25 Normal Saline IV 12/08/20 13:58 1,000 mls/hr .BOLUS STA Administration Ondansetron HCl 4 mg 12/08/20 12:59 12/08/20 13:25 Ondansetron 4 Mg/2 Ml Sdv IVPUSH 12/08/20 13:00 4 mg ONETIME ONE Administration - Re-Assessments/Exams Free Text/Narrative Re-Assessment/Exam: 12/08/20 15:19 I ordered an IV NS 1L bolus, zofran 4mg IV, dilaudid 0.25mg IV, labs, UA and a CT of her abdomen and pelvis without IV and oral contrast. Her WBC was normal. Her Hgb is low at 10.5. Her anion gap was elevated at 17.1. Her magnesium was a little low at 1.7. Her lipase was normal. Her UA shows a UTI. Her CT shows multiple findings believed to be stable. Visualized lung bases are clear. Nothing acute is definitely appreciated on noncontrast CT study of the abdomen and pelvis. She feels much better and wants to eat. I will give her something to eat and rocephin 1 gram IV. Departure - Departure Time of Disposition: 15:25 Disposition: Home, Self-Care 01 Condition: Good Clinical Impression: UTI, Urinary tract infectious disease, Nausea, Abdominal pain - Discharge Information *PRESCRIPTION DRUG MONITORING PROGRAM REVIEWED*: Not Applicable *COPY OF PRESCRIPTION DRUG MONITORING REPORT IN PATIENT RACHID: Not Applicable Prescriptions: cephALEXin [Keflex] 500 mg PO BID #14 cap Ondansetron [Zofran ODT] 4 mg PO Q6H PRN #20 tab.dis PRN Reason: Nausea\vomiting Referrals: Timi Casanova MD [Primary Care Provider] - 1 Week Additional Instructions: Drink plenty of fluids and advance your diet as tolerated. Take the keflex 2 time per day for 5 days. Take zofran every 6 hours as needed for nausea and vomiting. Follow up with your doctor this week. Please return if you are worse. Sepsis Event Note (ED) - Evaluation Sepsis Screening Result: No Definite Risk - Focused Exam Vital Signs: Vital Signs Temp Pulse Resp BP Pulse Ox 12/08/20 12:28 97.8 F 95 16 147/90 H 95 - My Orders Last 24 Hours: My Active Orders 12/08/20 12:59 Sodium Chloride 0.9% [Saline Flush] 10 ml FLUSH ASDIRECTED PRN Peripheral IV Insertion Adult [OM.PC] Stat 12/08/20 13:00 Peripheral IV Care [RC] . DIRECTED ED Antiemetic Medication Reflex [OM.PC] Stat 12/08/20 15:01 cefTRIAXone [Rocephin] 1 gm Sodium Chloride 0.9% [Normal Saline] 100 ml IV ONETIME - Assessment/Plan Last 24 Hours: My Active Orders 12/08/20 12:59 Sodium Chloride 0.9% [Saline Flush] 10 ml FLUSH ASDIRECTED PRN Peripheral IV Insertion Adult [OM.PC] Stat 12/08/20 13:00 Peripheral IV Care [RC] . DIRECTED ED Antiemetic Medication Reflex [OM.PC] Stat 12/08/20 15:01 cefTRIAXone [Rocephin] 1 gm Sodium Chloride 0.9% [Normal Saline] 100 ml IV ONETIME
[2020-12-08] MEDS ORDERED: diphenhydrAMINE 50 MG/ML SDV IVPUSH ONE (15:30)
[2020-12-08] MEDS ORDERED: Metoclopramide 10 MG/2 ML SDV IVPUSH ONE (15:30)
== END 2020-12-08 17:50 | disposition home or self-care (01) ==
LOC: JD.ED 12:08
DX: N39.0 Urinary tract infection, site not specified (principal); R11.2 Nausea with vomiting, unspecified; J44.9 Chronic obstructive pulmonary disease, unspecified; Z79.899 Other long term (current) drug therapy; Z88.5 Allergy status to narcotic agent; Z87.891 Personal history of nicotine dependence
CPT/HCPCS: 36415; 74176; 80053; 81001; 82150; 83690; 83735; 85025; 96365; 96375; 99284; J0696; J1200; J2405; J2765; J7030; 99283

== ENCOUNTER 2020-12-28 10:35 | Emergency (ER) | payer MEDICARE, BC ==
[2020-12-28] MEDS ORDERED: Sodium Chloride 0.9% 10 ML Syringe FLUSH PRN ×2 (11:38→14:27)
--- NOTE | 2020-12-28 12:16 | CR ---
Abdomen: Supine and upright views of the abdomen were obtained. Comparison: Prior CT abdomen and pelvis study of 12/08/20. Right hip prosthesis is noted. Bony structures are osteopenic. Two small loops of bowel are seen within the right upper abdomen which are slightly abnormal. Difficult to exclude focal ileus or a small area of bowel obstruction. Other portions of the bowel gas appeared normal. No free air is seen. Impression: 1. Two small bowel loops within the right upper abdomen slightly abnormal in appearance. Focal ileus or focal small bowel obstruction is possible. Please correlate with the patient's symptoms. 2. Other chronic findings as noted above. Diagnostic code #3
[2020-12-28] MEDS ORDERED: Sodium Chloride 0.9% 1,000 ML IV STA (13:09)
--- NOTE | 2020-12-28 13:10 | EDM.PDOC ---
ED HPI GENERAL MEDICAL PROBLEM - General Chief Complaint: Gastrointestinal Problem Stated Complaint: ABD PAIN Time Seen by Provider: 12/28/20 11:18 Source of Information: Reports: Patient, RN Notes Reviewed History Limitations: Reports: No Limitations - History of Present Illness INITIAL COMMENTS - FREE TEXT/NARRATIVE: Patient is an 89-year-old female presenting to the emergency department with complaints of middle and upper abdominal pain. She reports symptoms began during the evening and have progressed throughout the morning. Describes it as a aching sensation. She has had pain similar to this in the past and states that it was a urinary tract infection. She denies any fever, chills, nausea, vomiting, diarrhea. Reports that she has been having regular bowel movements and passing gas. She tried taking an antacid at home with no relief. Denies any chronic abdominal conditions. Middle Abdomen Pain Score (Numeric/FACES): 3 - Related Data Allergies Allergy/AdvReac Type Severity Reaction Status Date / Time oxycodone AdvReac Severe Confusion Verified 12/28/20 11:02 Home Meds: Home Meds Budesonide [Entocort EC] 3 mg PO DAILY 08/08/20 [History] Calcium Phosphate Dibas/Vit D3 [Vitamin Q5-Zedussd-Juqk Tablet] 1 each PO DAILY 08/08/20 [History] Celecoxib 200 mg PO BID 08/08/20 [History] Cetirizine HCl [Zyrtec] 10 mg PO DAILY 08/08/20 [History] Citalopram Hydrobromide [Celexa] 20 mg PO DAILY 08/08/20 [History] Denosumab [Prolia] 1 dose SUBCUT ASDIRECTED 08/08/20 [History] Ferrous Sulfate 325 mg PO ASDIRECTED 08/08/20 [History] Gabapentin [Neurontin] 600 mg PO TID 08/08/20 [History] Levothyroxine Sodium [Levothyroxine] 100 mcg PO DAILY 08/08/20 [History] Magnesium Oxide [Magnesium] 400 mg PO DAILY 08/08/20 [History] Omeprazole 20 mg PO BIDAC 08/08/20 [History] Ondansetron [Zofran] 4 mg BUCCAL Q6H PRN #8 tab 08/08/20 [Rx] Zolpidem Tartrate 5 mg PO BEDTIME PRN 08/08/20 [History] carvediloL [Carvedilol] 3.125 mg PO BID 08/08/20 [History] dilTIAZem HCL [Cardizem] 120 mg PO DAILY 08/08/20 [History] Ondansetron [Zofran ODT] 4 mg PO Q6H PRN #20 tab.dis 12/08/20 [Rx] cephALEXin [Keflex] 500 mg PO BID #14 cap 12/08/20 [Rx] Sucralfate [Carafate] 1 gm PO ACBED 10 Days #40 tab 12/28/20 [Rx] Past Medical History HEENT History: Reports: Impaired Vision Other HEENT History: glasses Cardiovascular History: Reports: Afib, Pacemaker Respiratory History: Reports: COPD Gastrointestinal History: Reports: Cholelithiasis Genitourinary History: Reports: Renal Calculus 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: Musculoskeletal History: Reports: Osteoarthritis Dermatologic History: Reports: Other (See Below) - Infectious Disease History Infectious Disease History: Reports: Shingles - Past Surgical History GI Surgical History: Reports: Appendectomy, Cholecystectomy, Other (See Below) Female Surgical History: Reports: Hysterectomy, Salpingo-Oophorectomy Musculoskeletal Surgical History: Reports: Other (See Below) Other Musculoskeletal Surgeries/Procedures:: r hip repair Social & Family History - Tobacco Use Tobacco Use Status *Q: Never Tobacco User - Caffeine Use Caffeine Use: Reports: None - Recreational Drug Use Recreational Drug Use: No - Living Situation & Occupation Living situation: Reports: , with Family (Nephew) Occupation: Retired ED ROS GENERAL - Review of Systems Review Of Systems: Comprehensive ROS is negative, except as noted in HPI. ED EXAM, GI/ABD - Physical Exam Exam: See Below Exam Limited By: No Limitations General Appearance: Alert, WD/WN, No Apparent Distress Respiratory/Chest: No Respiratory Distress, Lungs Clear, Normal Breath Sounds, No Accessory Muscle Use, Chest Non-Tender Cardiovascular: Normal Peripheral Pulses, Regular Rate, Rhythm, No Edema, No Gallop, No JVD, No Murmur, No Rub GI/Abdominal Exam: Normal Bowel Sounds, Soft, No Organomegaly, No Distention, No Abnormal Bruit, No Mass, Pelvis Stable, Tender (mild periumbilical and epigastric) Neurological: Alert, Oriented, CN II-XII Intact, Normal Cognition, Normal Gait, Normal Reflexes, No Motor/Sensory Deficits Psychiatric: Normal Affect, Normal Mood Skin Exam: Warm, Dry, Intact, Normal Color, No Rash #1 Interpretation EKG Date: 12/28/20 Time: 12:33 Rhythm: NSR Rate (Beats/Min): 63 EKG Interpretation Comments: Ventricular paced Course - Vital Signs Last Recorded V/S: Last Vital Signs Temp 96.6 F L 12/28/20 10:59 Pulse 68 12/28/20 10:59 Resp 16 12/28/20 10:59 BP 179/90 H 12/28/20 10:59 Pulse Ox 94 L 12/28/20 10:59 - Orders/Labs/Meds Orders: Active Orders 24 hr Category Date Time Status Peripheral IV Insertion Adult [OM.PC] Stat Oth 12/28/20 11:38 Ordered Labs: Laboratory Tests 12/28/20 12/28/20 12/28/20 Range/Units 12:06 12:06 12:25 WBC 7.35 (3.98-10.04) K/mm3 RBC 4.21 (3.98-5.22) M/mm3 Hgb 12.0 D (11.2-15.7) gm/dl Hct 38.0 (34.1-44.9) % MCV 90.3 (79.4-94.8) fl MCH 28.5 (25.6-32.2) pg MCHC 31.6 L (32.2-35.5) g/dl RDW Std Deviation 44.4 (36.4-46.3) fL Plt Count 256 (182-369) K/mm3 MPV 9.1 L (9.4-12.3) fl Neut % (Auto) 67.1 (34.0-71.1) % Lymph % (Auto) 20.4 (19.3-51.7) % [place] % (Auto) 10.7 (4.7-12.5) % Eos % (Auto) 1.4 (0.7-5.8) Baso % (Auto) 0.3 (0.1-1.2) % Neut # (Auto) 4.93 (1.56-6.13) K/mm3 Lymph # (Auto) 1.50 (1.18-3.74) K/mm3 [place] # (Auto) 0.79 H (0.24-0.36) K/mm3 Eos # (Auto) 0.10 (0.04-0.36) K/mm3 Baso # (Auto) 0.02 (0.01-0.08) K/mm3 Sodium 134 L (136-145) mEq/L Potassium 4.7 (3.5-5.1) mEq/L Chloride 100 (98-107) mEq/L Carbon Dioxide 24 (21-32) mEq/L Anion Gap 11.7 (5-15) BUN 15 (7-18) mg/dL Creatinine 1.0 (0.55-1.02) mg/dL Est Cr Clr Drug Dosing 36.40 mL/min Estimated GFR (MDRD) 52 (>60) mL/min BUN/Creatinine Ratio 15.0 (14-18) Glucose 114 H (70-99) mg/dL Calcium 9.3 (8.5-10.1) mg/dL Total Bilirubin 0.6 (0.2-1.0) mg/dL AST 14 L (15-37) U/L ALT 15 (14-59) U/L Alkaline Phosphatase 43 L (46-116) U/L Troponin I < 0.017 (0.00-0.056) ng/mL Total Protein 6.7 (6.4-8.2) g/dl Albumin 3.8 (3.4-5.0) g/dl Globulin 2.9 gm/dL Albumin/Globulin Ratio 1.3 (1-2) Lipase 254 (73-393) U/L Urine Color Yellow (Yellow) Urine Appearance Clear (Clear) Urine pH 7.0 (5.0-8.0) Ur Specific [place] 1.025 (1.005-1.030) Urine Protein Negative (Negative) Urine Glucose (UA) Negative (Negative) Urine Ketones 1+ H (Negative) Urine Occult Blood Negative (Negative) Urine Nitrite Negative (Negative) Urine Bilirubin Negative (Negative) Urine Urobilinogen 0.2 (0.2-1.0) Ur Leukocyte Esterase Negative (Negative) Urine RBC 0-5 (0-5) /hpf Urine WBC Not seen (0-5) /hpf Ur Epithelial Cells Not seen (0-5) /hpf Urine Bacteria Rare (FEW) /hpf Urine Mucus Rare (FEW) /hpf Meds: Medications Discontinued Medications Generic Name Dose Route Start Last Admin Trade Name Freq PRN Reason Stop Dose Admin Acetaminophen 975 mg 12/28/20 13:15 12/28/20 14:00 Acetaminophen 325 Mg Tab PO 12/28/20 13:16 975 mg NOW ONE Administration Diatrizoate Meglum/Diatrizoate Sod 120 ml 12/28/20 14:27 12/28/20 14:37 Diatrizoate Meglumine/Diatrizoate Sodium 37% 120 Ml Bottle PO 12/28/20 14:28 45 ml ONETIME ONE Administration Sodium Chloride 1,000 mls @ 100 mls/hr 12/28/20 13:09 12/28/20 14:05 Normal Saline IV 12/28/20 23:08 100 mls/hr NOW STA Administration Iopamidol 100 ml 12/28/20 14:27 12/28/20 14:37 Iopamidol 612 Mg/Ml 100 Ml Bottle IVPUSH 12/28/20 14:28 100 ml ONETIME ONE Administration Sodium Chloride 10 ml 12/28/20 11:38 12/28/20 14:09 Sodium Chloride 0.9% 10 Ml Syringe FLUSH 10 ml ASDIRECTED PRN Administration Keep Vein Open Sodium Chloride 10 ml 12/28/20 14:27 12/28/20 14:37 Sodium Chloride 0.9% 10 Ml Syringe FLUSH 10 ml ONETIME PRN Administration IV FLUSH Sucralfate 2 gm 12/28/20 15:28 12/28/20 15:52 Sucralfate 1 Gm Tab PO 12/28/20 15:29 2 gm ONETIME ONE Administration - Re-Assessments/Exams Free Text/Narrative Re-Assessment/Exam: Patient is an 89-year-old female presenting to the emergency department with complaints of acute onset of upper abdominal pain. Reports symptoms began during the evening and have gotten progressively worse. She has had no fever, chills, nausea, vomiting, or diarrhea. States that she is still passing gas. Reports she has had pain similar to this in the past and that it was caused by a urinary tract infection. She tried taking antacid at home and it provided no relief. She denies the need for pain medications at this time. I have ordered blood work, urinalysis, EKG, and an abdomen flat and upright x-ray. 12/28/20 13:08 Hematology is unremarkable. Urinalysis is negative for infection. Abdomen x- ray shows slight increase stool in the lower colon but no other abnormalities. Patient is still having discomfort. Will complete CT scan of the abdomen pelvis with IV and oral contrast. We will start IV fluids of normal saline at 100 mils per hour. She denies the need for any pain medications at this time. 12/28/20 13:15 Patient is complaining of back pain from lying in the bed. I will give her Tylenol 975 mg p.o. 12/28/20 15:25 CT scan of the abdomen pelvis shows no acute abnormalities. Patient is feeling better and would like to go home. Discussed that symptoms are likely related to gastritis. She currently takes omeprazole daily I will recommend that she takes it twice daily for the next few days and I will also prescribe her Carafate. She should follow-up with her primary care provider on Tuesday or Tuesday to ensure symptoms are improving. Discussed return precautions. Discharge instructions as document. Departure - Departure Time of Disposition: 15:25 Disposition: Home, Self-Care 01 Condition: Good Clinical Impression: Abdominal pain - Discharge Information *PRESCRIPTION DRUG MONITORING PROGRAM REVIEWED*: No *COPY OF PRESCRIPTION DRUG MONITORING REPORT IN PATIENT RACHID: No Prescriptions: Sucralfate [Carafate] 1 gm PO ACBED 10 Days #40 tab Instructions: Abdominal Pain, Adult, [id number] Referrals: Timi Casanova MD [Primary Care Provider] - Forms: ED Department Discharge Additional Instructions: You were seen in the emergency department today for middle and upper abdominal pain and work-up included blood work, urinalysis, EKG, and CT scan your abdomen pelvis. Results your work-up found to be normal. You not have a urinary tract infection. There was no abnormalities on your abdomen pelvis CT. As we discussed, you are likely suffering from gastritis which is inflammation in your stomach. I would recommend that you take omeprazole 20 mg twice daily for the next week and then go back to once daily. You have been prescribed Carafate which she will take 30 minutes prior to meals and at bedtime for the next 10 days. 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 Follow-up with your primary care provider on Tuesday or Tuesday of this week to ensure that your symptoms are improving. Return to ER for any new or worsening symptoms of concern. Sepsis Event Note (ED) - Evaluation Sepsis Screening Result: No Definite Risk - Focused Exam Vital Signs: Vital Signs Temp Pulse Resp BP Pulse Ox 12/28/20 10:59 96.6 F L 68 16 179/90 H 94 L - My Orders Last 24 Hours: My Active Orders 12/28/20 11:38 Peripheral IV Insertion Adult [OM.PC] Stat - Assessment/Plan Last 24 Hours: My Active Orders 12/28/20 11:38 Peripheral IV Insertion Adult [OM.PC] Stat
[2020-12-28] MEDS ORDERED: Acetaminophen 325 MG Tab PO ONE (13:15)
[2020-12-28] MEDS ORDERED: Diatrizoate Meglumine/Diatrizoate Sodium 37% 120 ML Bottle PO ONE (14:27)
[2020-12-28] MEDS ORDERED: Iopamidol 612 MG/ML 100 ML Bottle IVPUSH ONE (14:27)
--- NOTE | 2020-12-28 15:11 | CT ---
CT abdomen and pelvis Technique: Multiple axial sections were obtained from above the dome of the diaphragm inferiorly through the pubic symphysis. Intravenous and oral contrast were utilized. Delayed images were also obtained through the bladder. Reconstructed coronal and sagittal images were obtained. Comparison: Prior CT abdomen and pelvis exam of 12/08/20. Visualized lung bases show nothing acute. Heart is somewhat enlarged. Liver shows several peripheral calcifications which are stable from prior CT exam. Minimal intrahepatic biliary ductal prominence is seen. Prior cholecystectomy is noted. Spleen size is normal. Adrenal glands show no nodule. Kidneys show symmetric contrast enhancement. Cyst is noted within the lower right kidney measuring 2.8 cm. Cyst is noted within the mid left kidney measuring 3.3 cm. Smaller cyst is also noted within the mid left kidney measuring 1.1 cm. Calcifications are noted within both kidneys compatible with nonobstructing calculi which are stable from prior study. Several cysts are seen within the pancreas. Largest cyst is located within the neck measuring 2.3 cm. Findings are felt to be fairly stable from most recent exams. These are most likely benign. Abdominal aorta shows no aneurysm. No retroperitoneal adenopathy is seen. No mesenteric abnormalities are seen. Left-sided fat-containing hernia is noted (which is believed to represent a femoral hernia at this time). 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 Appendix is not visualized. No bowel dilatation is seen. Delayed images show contrast within the distal ureters as well as within the bladder. Bone window settings were reviewed which show diffuse degenerative change within the spine. Impression: 1. Numerous findings as described above which are believed to be chronic. 2. Nothing acute is seen. No bowel abnormality is appreciated. Diagnostic code #2
[2020-12-28] MEDS ORDERED: Sucralfate 1 GM Tab PO ONE (15:28)
== END 2020-12-28 15:52 | disposition home or self-care (01) ==
LOC: JD.ED 10:35
DX: R10.13 Epigastric pain (principal); R10.33 Periumbilical pain; I48.91 Unspecified atrial fibrillation; J44.9 Chronic obstructive pulmonary disease, unspecified; Z88.5 Allergy status to narcotic agent; Z79.899 Other long term (current) drug therapy
CPT/HCPCS: 36415; 74019; 74177; 80053; 81001; 83690; 84484; 85025; 93005; 99284; A9270; J7030; Q9963; Q9967

== ENCOUNTER 2020-12-28 17:44 | Emergency (ER) | payer MEDICARE, BC ==
[2020-12-28] MEDS ORDERED: Alum Hydrox/Mag Hydrox/Simeth 30 ML, Lidocaine 2% 15 ML PO ONE ×2 (18:10)
[2020-12-28] MEDS ORDERED: Acetaminophen 325 MG Tab PO ONE ×2 (18:11→18:30)
[2020-12-28] MEDS ORDERED: Acetaminophen/HYDROcodone 325-5 MG Tab PO ONE (18:30)
--- NOTE | 2020-12-28 19:06 | EDM.PDOC ---
ED HPI GENERAL MEDICAL PROBLEM - General Chief Complaint: Abdominal Pain Stated Complaint: ABD PAIN Time Seen by Provider: 12/28/20 18:12 Source of Information: Reports: Patient, RN Notes Reviewed History Limitations: Reports: No Limitations - History of Present Illness INITIAL COMMENTS - FREE TEXT/NARRATIVE: Patient is an 89-year-old female return to emergency department with complaints of abdominal cramping. She was just discharged from the emergency department after extensive work-up including blood work, urinalysis, abdominal x-ray, and CT scan of the abdomen pelvis. This work-up was found to be normal. She was feeling well at the time she was discharged, however reports that she is now experiencing abdominal cramping and diarrhea. Patient did receive oral contrast and was educated on discharge that this will cause diarrhea. She is also complaining of some back discomfort. She was discharged home with Carafate which she states she did take, however did not get any relief. Denies any nausea or vomiting. She has had no fever or chills. - Related Data Allergies Allergy/AdvReac Type Severity Reaction Status Date / Time oxycodone AdvReac Severe Confusion Verified 12/28/20 11:02 Home Meds: Home Meds Budesonide [Entocort EC] 3 mg PO DAILY 08/08/20 [History] Calcium Phosphate Dibas/Vit D3 [Vitamin Q7-Czxkouo-Lxaq Tablet] 1 each PO DAILY 08/08/20 [History] Celecoxib 200 mg PO BID 08/08/20 [History] Cetirizine HCl [Zyrtec] 10 mg PO DAILY 08/08/20 [History] Citalopram Hydrobromide [Celexa] 20 mg PO DAILY 08/08/20 [History] Denosumab [Prolia] 1 dose SUBCUT ASDIRECTED 08/08/20 [History] Ferrous Sulfate 325 mg PO ASDIRECTED 08/08/20 [History] Gabapentin [Neurontin] 600 mg PO TID 08/08/20 [History] Levothyroxine Sodium [Levothyroxine] 100 mcg PO DAILY 08/08/20 [History] Magnesium Oxide [Magnesium] 400 mg PO DAILY 08/08/20 [History] Omeprazole 20 mg PO BIDAC 08/08/20 [History] Ondansetron [Zofran] 4 mg BUCCAL Q6H PRN #8 tab 08/08/20 [Rx] Zolpidem Tartrate 5 mg PO BEDTIME PRN 08/08/20 [History] carvediloL [Carvedilol] 3.125 mg PO BID 08/08/20 [History] dilTIAZem HCL [Cardizem] 120 mg PO DAILY 08/08/20 [History] Ondansetron [Zofran ODT] 4 mg PO Q6H PRN #20 tab.dis 12/08/20 [Rx] cephALEXin [Keflex] 500 mg PO BID #14 cap 12/08/20 [Rx] Sucralfate [Carafate] 1 gm PO ACBED 10 Days #40 tab 12/28/20 [Rx] Past Medical History HEENT History: Reports: Impaired Vision Other HEENT History: glasses Cardiovascular History: Reports: Afib, Pacemaker Respiratory History: Reports: COPD Gastrointestinal History: Reports: Cholelithiasis Genitourinary History: Reports: Renal Calculus 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: Musculoskeletal History: Reports: Osteoarthritis Dermatologic History: Reports: Other (See Below) - Infectious Disease History Infectious Disease History: Reports: Shingles - Past Surgical History GI Surgical History: Reports: Appendectomy, Cholecystectomy, Other (See Below) Female Surgical History: Reports: Hysterectomy, Salpingo-Oophorectomy Musculoskeletal Surgical History: Reports: Other (See Below) Other Musculoskeletal Surgeries/Procedures:: r hip repair Social & Family History - Tobacco Use Tobacco Use Status *Q: Never Tobacco User - Caffeine Use Caffeine Use: Reports: None - Living Situation & Occupation Living situation: Reports: , with Family (Nephew) Occupation: Retired ED ROS GENERAL - Review of Systems Review Of Systems: See Below Constitutional: Reports: No Symptoms. Denies: Fever, Chills HEENT: Reports: No Symptoms Respiratory: Reports: No Symptoms Cardiovascular: Reports: No Symptoms. Denies: Chest Pain Endocrine: Reports: No Symptoms GI/Abdominal: Reports: Abdominal Pain, Diarrhea. Denies: Nausea, Vomiting : Reports: No Symptoms Musculoskeletal: Reports: Back Pain Skin: Reports: No Symptoms Neurological: Reports: No Symptoms Psychiatric: Reports: No Symptoms Hematologic/Lymphatic: Reports: No Symptoms Immunologic: Reports: No Symptoms ED EXAM, GI/ABD - Physical Exam Exam: See Below Exam Limited By: No Limitations General Appearance: Alert, WD/WN, No Apparent Distress Respiratory/Chest: No Respiratory Distress, Lungs Clear, Normal Breath Sounds, No Accessory Muscle Use, Chest Non-Tender Cardiovascular: Normal Peripheral Pulses, Regular Rate, Rhythm, No Edema, No Gallop, No JVD, No Murmur, No Rub GI/Abdominal Exam: Normal Bowel Sounds, Soft, No Organomegaly, No Distention, No Abnormal Bruit, No Mass, Pelvis Stable, Tender (mild generalized tenderness) Neurological: Alert, Oriented, CN II-XII Intact, Normal Cognition, Normal Gait, Normal Reflexes, No Motor/Sensory Deficits Psychiatric: Normal Affect, Normal Mood Skin Exam: Warm, Dry, Intact, Normal Color, No Rash Course - Vital Signs Last Recorded V/S: Last Vital Signs Temp 97.0 F 12/28/20 18:00 Pulse 76 12/28/20 18:00 Resp 14 12/28/20 18:00 BP 163/88 H 12/28/20 18:00 Pulse Ox 95 12/28/20 18:00 - Orders/Labs/Meds Meds: Medications Discontinued Medications Generic Name Dose Route Start Last Admin Trade Name Shanda PRN Reason Stop Dose Admin Acetaminophen 650 mg 12/28/20 18:11 12/28/20 18:32 Acetaminophen 325 Mg Tab PO 12/28/20 18:12 Not Given NOW ONE Acetaminophen 325 mg 12/28/20 18:30 12/28/20 18:35 Acetaminophen 325 Mg Tab PO 12/28/20 18:31 325 mg NOW ONE Administration Hydrocodone Bitart/Acetaminophen 1 tab 12/28/20 18:30 12/28/20 18:35 Acetaminophen/Hydrocodone 325-5 Mg Tab PO 12/28/20 18:31 1 tab ONETIME ONE Administration Al Hydroxide/Mg Hydroxide 30 0 ml 12/28/20 18:10 12/28/20 18:34 ml/ Lidocaine HCl 15 ml PO 12/28/20 18:11 45 ml ONETIME ONE Administration - Re-Assessments/Exams Free Text/Narrative Re-Assessment/Exam: Patient is an 89-year-old female return the emergency department with complaints of abdominal cramping and diarrhea. I saw her previously and she was discharged a few hours ago after extensive work-up including blood work, urinalysis, abdomen x-ray, and CT scan of the abdomen pelvis. This work-up is unremarkable. Patient was feeling well and discharged home. She returns with generalized abdominal cramping with diarrhea which may very well be related to the oral contrast she received. Nursing staff had educated her on discharge at this would likely occur. She is also having some back discomfort which is chronic for her. We will give her a GI cocktail as well as 3 to 25 mg of Tylenol and 1 [place]. We will monitor to see if this improves her symptoms. 12/28/20 19:13 Patient is feeling much better after the medications given and would like to go home. States that she has Tylenol at home that she will use as needed. She also has prescription for Carafate and has omeprazole at home. Discussed return precautions. Discharge instructions as documented. Departure - Departure Time of Disposition: 19:13 Disposition: Home, Self-Care 01 Condition: Good Clinical Impression: Abdominal pain Qualifiers: Abdominal location: generalized Qualified Code(s): R10.84 - Generalized abdominal pain - Discharge Information *PRESCRIPTION DRUG MONITORING PROGRAM REVIEWED*: No *COPY OF PRESCRIPTION DRUG MONITORING REPORT IN PATIENT RACHID: No Instructions: Abdominal Pain, Adult, [id number] Referrals: Timi Casanova MD [Primary Care Provider] - Forms: ED Department Discharge Additional Instructions: You were seen in the emergency department for return of abdominal pain and cramping and diarrhea. While in the ER, you received a dose of Tylenol as well as hydrocodone and a GI cocktail (Maalox with lidocaine). This did significantly improve your symptoms. As we discussed, your upper abdominal pain is likely related to gastritis for which you should use the Carafate that was prescribed as well as omeprazole twice daily. Your abdominal cramping and diarrhea is likely related to the oral contrast that you drink prior to your CT scan. This may continue for a few hours but then should resolve. May continue to use Tylenol as needed for pain. Ensure that she did not exceed 4000 mg in a 24-hour period. If you should experience any new or worsening symptoms, please not hesitate to return to the emergency department for reevaluation. Sepsis Event Note (ED) - Evaluation Sepsis Screening Result: No Definite Risk - Focused Exam Vital Signs: Vital Signs Temp Pulse Resp BP Pulse Ox 12/28/20 18:00 97.0 F 76 14 163/88 H 95
== END 2020-12-28 19:30 | disposition home or self-care (01) ==
LOC: JD.ED 17:44
DX: R10.84 Generalized abdominal pain (principal); I48.91 Unspecified atrial fibrillation; J44.9 Chronic obstructive pulmonary disease, unspecified; Z95.0 Presence of cardiac pacemaker; Z88.5 Allergy status to narcotic agent; Z79.899 Other long term (current) drug therapy
CPT/HCPCS: 99283; A9270

== ENCOUNTER 2021-02-26 17:13 | Emergency (ER) | payer MEDICARE, BC ==
--- NOTE | 2021-02-26 19:32 | EDM.PDOC ---
ED HPI GENERAL MEDICAL PROBLEM - General Chief Complaint: General Stated Complaint: AREA AROUND PACEMAKER IS DISCOLORED Time Seen by Provider: 02/26/21 19:13 Source of Information: Reports: Patient, Family (Daughter) History Limitations: Reports: No Limitations - History of Present Illness INITIAL COMMENTS - FREE TEXT/NARRATIVE: Mrs. Dumont is a very pleasant 89-year-old woman who now presents to the ED with swelling and discoloration to her left chest pacemaker pocket, with extension of discoloration down onto her left breast, since 02/17/2021, following replacement of her pacemaker battery on 02/16/2021. She states that she spoke to her application spec about it on 02/18/2021, and was told to apply an ice pack to the area. She states that she did that 3 times on 02/18/2021, twice on 02/19/2021, and once a day ever since, but the swelling has persisted. She is wondering why it is not going down. She denies associated pain. The patient states that she is on Plavix. At triage, the patient's initial BP was 166/85, otherwise, she was hemodynamically stable, afebrile, saturating 98% on room air. She appears to be comfortable, in no acute distress. Other than the above issue, the patient denies having a recent fever, chills, sore throat, ear pain, nasal or sinus congestion, cough, dyspnea, chest pain, palpitations, nausea, vomiting, constipation, diarrhea, abdominal pain, urinary symptoms, recent weight gain or weight loss, recent bloody bowel movements or black bowel movements, recent joint aches, headaches, or rashes. I reviewed the PMHx/PSHx/SocHx, which was reviewed with the patient by the RN. The patient's PCP is Dr. Timi Armas. 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 She has received 2 COVID vaccinations, although no booster vaccination. She received an influenza vaccination this season. - Related Data Allergies Allergy/AdvReac Type Severity Reaction Status Date / Time oxycodone AdvReac Severe Confusion Verified 02/26/21 19:14 Home Meds: Home Meds Budesonide [Entocort EC] 3 mg PO DAILY 08/08/20 [History] Calcium Phosphate Dibas/Vit D3 [Vitamin Y5-Dsgrwvu-Oylx Tablet] 1 each PO DAILY 08/08/20 [History] Celecoxib 200 mg PO BID 08/08/20 [History] Cetirizine HCl [Zyrtec] 10 mg PO DAILY 08/08/20 [History] Citalopram Hydrobromide [Celexa] 20 mg PO DAILY 08/08/20 [History] Denosumab [Prolia] 1 dose SUBCUT ASDIRECTED 08/08/20 [History] Ferrous Sulfate 325 mg PO ASDIRECTED 08/08/20 [History] Gabapentin [Neurontin] 600 mg PO TID 08/08/20 [History] Levothyroxine Sodium [Levothyroxine] 100 mcg PO DAILY 08/08/20 [History] Magnesium Oxide [Magnesium] 400 mg PO DAILY 08/08/20 [History] Omeprazole 20 mg PO BIDAC 08/08/20 [History] Ondansetron [Zofran] 4 mg BUCCAL Q6H PRN #8 tab 08/08/20 [Rx] Zolpidem Tartrate 5 mg PO BEDTIME PRN 08/08/20 [History] carvediloL [Carvedilol] 3.125 mg PO BID 08/08/20 [History] dilTIAZem HCL [Cardizem] 120 mg PO DAILY 08/08/20 [History] Ondansetron [Zofran ODT] 4 mg PO Q6H PRN #20 tab.dis 12/08/20 [Rx] cephALEXin [Keflex] 500 mg PO BID #14 cap 12/08/20 [Rx] Sucralfate [Carafate] 1 gm PO ACBED 10 Days #40 tab 12/28/20 [Rx] Past Medical History HEENT History: Reports: Impaired Vision Other HEENT History: glasses Cardiovascular History: Reports: Afib, Pacemaker Respiratory History: Reports: COPD Gastrointestinal History: Reports: Cholelithiasis Genitourinary History: Reports: Renal Calculus 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: Musculoskeletal History: Reports: Osteoarthritis Dermatologic History: Reports: Other (See Below) - Infectious Disease History Infectious Disease History: Reports: Shingles - Past Surgical History GI Surgical History: Reports: Appendectomy, Cholecystectomy, Other (See Below) Female Surgical History: Reports: Hysterectomy, Salpingo-Oophorectomy Musculoskeletal Surgical History: Reports: Other (See Below) Other Musculoskeletal Surgeries/Procedures:: r hip replaced Social & Family History - Tobacco Use Used Tobacco, but Quit: No Month/Year Tobacco Last Used: 1982 - Caffeine Use Caffeine Use: Reports: Coffee - Living Situation & Occupation Living situation: Reports: , with Family (Nephew) Occupation: Retired ED ROS GENERAL - Review of Systems Review Of Systems: Comprehensive ROS is negative, except as noted in HPI. ED EXAM, GENERAL - Physical Exam Exam: See Below Exam Limited By: No Limitations General Appearance: Alert, WD/WN, No Apparent Distress Respiratory/Chest: No Respiratory Distress, Lungs Clear, Normal Breath Sounds, N o Accessory Muscle Use, Other (Fairly large hematoma to the left pacemaker pocket area, with associated ecchymotic-appearing discoloration that extends down to the anterior and lateral aspect of the patient's left breast. There is a considerable degree of associated biliverdin discoloration. The entire area is nontender.) Course - Vital Signs Last Recorded V/S: Last Vital Signs Temp 36.3 C 02/26/21 19:09 Pulse 80 02/26/21 19:09 Resp 20 02/26/21 19:09 BP 166/85 H 02/26/21 19:09 Pulse Ox 98 02/26/21 19:09 - Re-Assessments/Exams Free Text/Narrative Re-Assessment/Exam: 02/26/21 19:27 The patient has a fairly large hematoma associated with her left-sided pacemaker, with extravasation of blood to her lower left breast. I explained to the patient that there is no medical reason to evacuate the hematoma, that, given time, it will eventually liquefy and be reabsorbed. I explained that that process may take months. She no longer needs to apply an ice pack; the usefulness of that was limited to the first few days. Departure - Departure Time of Disposition: 19:28 Disposition: Home, Self-Care 01 Condition: Good Clinical Impression: Pacemaker pocket hematoma - Discharge Information *PRESCRIPTION DRUG MONITORING PROGRAM REVIEWED*: Not Applicable *COPY OF PRESCRIPTION DRUG MONITORING REPORT IN PATIENT RACHID: Not Applicable Referrals: Timi Casanova MD [Primary Care Provider] - Additional Instructions: You were seen in the emergency room for swelling and discoloration of the area around your left pacemaker, with extension of discoloration to your left breast, following replacement of your pacemaker battery on 02/16/2021. As explained, you have a hematoma (a clot of blood) in the pacemaker pocket. As explained, there is no way to physically get rid of the blood clot - it will have to liquefy and get reabsorbed over time, which will likely take months. As explained, you no longer need to apply an ice pack to the area. If any other problems, please do not hesitate to return to the ER. Sepsis Event Note (ED) - Evaluation Sepsis Screening Result: No Definite Risk - Focused Exam Vital Signs: Vital Signs Temp Pulse Resp BP Pulse Ox 02/26/21 19:09 36.3 C 80 20 166/85 H 98
== END 2021-02-26 20:08 | disposition home or self-care (01) ==
LOC: JD.ED 17:13
DX: S20.212A Contusion of left front wall of thorax, initial encounter (principal); J44.9 Chronic obstructive pulmonary disease, unspecified; M19.90 Unspecified osteoarthritis, unspecified site; Z72.0 Tobacco use; Z79.02 Long term (current) use of antithrombotics/antiplatelets; Z95.0 Presence of cardiac pacemaker; Z88.5 Allergy status to narcotic agent; Z79.899 Other long term (current) drug therapy; X50.0XXA Overexertion from strenuous movement or load, initial encounter
CPT/HCPCS: 99283

== ENCOUNTER 2021-11-19 06:04 | Day surgery (SDC) | payer MEDICARE, BC ==
[~2021-11-19 06:04] MED LIST: Lactated Ringers 1,000 ML IV SCH; Lidocaine 1%/Sod Bicarbonate in NS 8.4% 1 ML Syringe IDERM PRN; Sodium Chloride 0.9% 10 ML Syringe FLUSH PRN; Sodium Chloride 0.9% 10 ML Syringe FLUSH SCH
[2021-11-19] MEDS ORDERED: Lidocaine 1% 10 ML MDV ONE (06:05)
[2021-11-19] MEDS ORDERED: Bupivacaine 0.25% 10 ML SDV ONE (06:05)
[2021-11-19] MEDS ORDERED: fentaNYL 100 MCG/2 ML SDV ONE (06:46)
[2021-11-19] MEDS ORDERED: ceFAZolin 2 GM Vial ONE (06:46)
[2021-11-19] MEDS ORDERED: Propofol 200 MG/20 ML SDV ONE (06:46)
== END 2021-11-19 08:25 | disposition home or self-care (01) ==
LOC: JD.SDS 06:04
PROVIDERS: ATTEND Orthopaedic Surgery
DX: G56.01 Carpal tunnel syndrome, right upper limb (principal); G56.11 Other lesions of median nerve, right upper limb; I11.0 Hypertensive heart disease with heart failure; I50.9 Heart failure, unspecified; F41.9 Anxiety disorder, unspecified; J44.9 Chronic obstructive pulmonary disease, unspecified; E78.5 Hyperlipidemia, unspecified; E03.9 Hypothyroidism, unspecified; M19.90 Unspecified osteoarthritis, unspecified site; N39.0 Urinary tract infection, site not specified; I48.0 Paroxysmal atrial fibrillation; K21.9 Gastro-esophageal reflux disease without esophagitis; N28.9 Disorder of kidney and ureter, unspecified; Z90.49 Acquired absence of other specified parts of digestive tract; Z79.899 Other long term (current) drug therapy; Z88.5 Allergy status to narcotic agent; Z98.890 Other specified postprocedural states; Z87.891 Personal history of nicotine dependence; Z79.82 Long term (current) use of aspirin
CPT/HCPCS: 64721; J0690; J2704; J3010; J3490; J7120; 01810

== ENCOUNTER 2022-02-16 10:07 | Emergency (ER) | payer MEDICARE, BC ==
[2022-02-16] MEDS: traMADol 50 MG Tab PO ONE ×2 (12:59→13:38)
[2022-02-16] MEDS ORDERED: Acetaminophen 325 MG Tab PO ONE (14:33)
== END 2022-02-16 15:30 | disposition home or self-care (01) ==
LOC: JD.ED 10:07
DX: S32.591A Other specified fracture of right pubis, initial encounter for closed fracture (principal); I11.0 Hypertensive heart disease with heart failure; I50.9 Heart failure, unspecified; J44.9 Chronic obstructive pulmonary disease, unspecified; Z88.5 Allergy status to narcotic agent; Z79.899 Other long term (current) drug therapy; Z79.82 Long term (current) use of aspirin; Z90.49 Acquired absence of other specified parts of digestive tract; Z90.710 Acquired absence of both cervix and uterus
CPT/HCPCS: 73700; 99283; A9270

== ENCOUNTER 2022-03-31 07:15 | Emergency (ER) | payer MEDICARE, BC ==
[2022-03-31] MEDS ORDERED: Sodium Chloride 0.9% 1,000 ML IV STA (09:26)
[2022-03-31] MEDS ORDERED: Sodium Chloride 0.9% 10 ML Syringe FLUSH PRN (09:26)
[2022-03-31] MEDS ORDERED: Ondansetron 4 MG/2 ML SDV IVPUSH ONE (09:26)
[2022-03-31] MEDS ORDERED: Alum Hydrox/Mag Hydrox/Simeth 30 ML, Lidocaine 2% 15 ML PO ONE ×2 (09:27)
[2022-03-31] MEDS ORDERED: Famotidine 20 MG/2 ML SDV IVPUSH ONE (10:28)
[2022-03-31] MEDS ORDERED: Carvedilol 3.125 MG Tab PO ONE (11:03)
[2022-03-31] MEDS ORDERED: Acetaminophen 325 MG Tab PO ONE (11:04)
[2022-03-31] MEDS ORDERED: Diltiazem 120 MG Cap.CD PO ONE (11:04)
[2022-03-31 11:08] LABS: ESTIMATED GFR 83 mL/min (>60)
[2022-03-31 11:18] LABS: CORONAVIRUS COVID-19 NAA NEGATIVE (NEGATIVE)
[2022-03-31] MEDS ORDERED: Sucralfate Suspension 1 GM/10 ML Cup PO ONE (11:50)
== END 2022-03-31 13:50 | disposition home or self-care (01) ==
LOC: JD.ED 07:15
DX: K52.9 Noninfective gastroenteritis and colitis, unspecified (principal); I48.91 Unspecified atrial fibrillation; I13.0 Hypertensive heart and chronic kidney disease with heart failure and stage 1 through stage 4 chronic kidney disease, or unspecified chronic kidney disease; N18.30 Chronic kidney disease, stage 3 unspecified; I50.9 Heart failure, unspecified; E03.9 Hypothyroidism, unspecified; J44.9 Chronic obstructive pulmonary disease, unspecified; K21.9 Gastro-esophageal reflux disease without esophagitis; Z95.0 Presence of cardiac pacemaker; Z88.5 Allergy status to narcotic agent; Z79.82 Long term (current) use of aspirin; Z79.899 Other long term (current) drug therapy; Z87.891 Personal history of nicotine dependence; Z20.822 Contact with and (suspected) exposure to COVID-19
CPT/HCPCS: 0241U; 36415; 74019; 80053; 83690; 84484; 85025; 86140; 93005; 96361; 96374; 96375; 99284; A9270; J2405; J3490; J7030

== ENCOUNTER 2022-09-09 10:04 | Emergency (ER) | payer MEDICARE, BC ==
[2022-09-09] MEDS ORDERED: Sodium Chloride 0.9% 10 ML Syringe FLUSH PRN ×2 (10:28→12:20)
[2022-09-09 10:59] LABS: BASOPHILS ABSOLUTE AUTO 0.01 K/mm3 (0.01-0.08); BASOPHILS PERCENT AUTO 0.2 % (0.1-1.2); EOSINOPHILS ABSOLUTE AUTO 0.24 K/mm3 (0.04-0.36); EOSINOPHILS PERCENT AUTO 3.8 (0.7-5.8); HEMATOCRIT 32.7 % (34.1-44.9); HEMOGLOBIN 10.1 gm/dl (11.2-15.7); IMMATURE GRAN ABSOLUTE AUTO 0.01 K/mm3 (0.00-0.10); IMMATURE GRAN PERCENT AUTO 0.2 % (<=1.0); LYMPHOCYTES ABSOLUTE AUTO 0.81 K/mm3 (1.18-3.74); LYMPHOCYTES PERCENT AUTO 12.9 % (19.3-51.7); MEAN CORPUSCULAR HEMOGLOBIN 28.3 pg (25.6-32.2); MEAN CORPUSCULAR HGB CONC 30.9 g/dl (32.2-35.5); MEAN CORPUSCULAR VOLUME 91.6 fl (79.4-94.8); MEAN PLATELET VOLUME 9.3 fl (9.4-12.3); MONOCYTES ABSOLUTE AUTO 0.62 K/mm3 (0.24-0.36); MONOCYTES PERCENT AUTO 9.9 % (4.7-12.5); NEUTROPHILS ABSOLUTE AUTO 4.57 K/mm3 (1.56-6.13); PLATELET COUNT,PLT 210 K/mm3 (182-369); RED BLOOD CELL COUNT 3.57 M/mm3 (3.98-5.22); WHITE BLOOD CELL COUNT,WBC 6.26 K/mm3 (3.98-10.04)
[2022-09-09] MEDS ORDERED: Sodium Chloride 0.9% 1,000 ML IV ONE (11:05)
[2022-09-09 11:18] LABS: INR 1.12; PROTHROMBIN TIME 11.9 SECONDS (9.7-12.0)
[2022-09-09 11:24] LABS: A/G RATIO 1.2 (1-2); ALBUMIN 3.7 g/dl (3.4-5.0); ANION GAP 14.9 (5-15); BUN/CREATININE RATIO 18.2 (14-18); CALCIUM 9.8 mg/dL (8.5-10.1); CREATININE 1.1 mg/dL (0.55-1.02); EST CRCL DRUG DOSING (CG) 32.46 mL/min; MAGNESIUM 1.7 mg/dL (1.8-2.4); POTASSIUM,K 4.9 mEq/L (3.5-5.1); PROTEIN TOTAL,TP 6.9 g/dl (6.4-8.2)
[2022-09-09] MEDS ORDERED: Iopamidol 755 Mg/ML 100 ML Bottle IVPUSH ONE (12:20)
[2022-09-09] MEDS ORDERED: Sodium Chloride 0.9% 100 ML IV SCH (12:30)
[2022-09-09] MEDS ORDERED: Magnesium Sulfate/Water 2 GM in Premix Bag 1 BAG IV ONE (13:01)
[2022-09-09 13:32] LABS: APPEARANCE,URINE CLEAR (Clear); BILIRUBIN,URINE NEGATIVE (Negative); COLOR,URINE YELLOW (Yellow); GLUCOSE,URINE NEGATIVE (Negative); KETONES,URINE NEGATIVE (Negative); LEUKOCYTE ESTERASE,URINE NEGATIVE (Negative); NITRITE,URINE NEGATIVE (Negative); OCCULT BLOOD,URINE NEGATIVE (Negative); PROTEIN,URINE NEGATIVE (Negative); UROBILINOGEN,URINE 0.2 (0.2-1.0)
[2022-09-09] MEDS ORDERED: Furosemide 40 MG/4 ML VIAL IVPUSH ONE (15:27)
== END 2022-09-09 17:00 | disposition home or self-care (01) ==
LOC: JD.ED 10:04
DX: E87.70 Fluid overload, unspecified (principal); I48.91 Unspecified atrial fibrillation; I11.0 Hypertensive heart disease with heart failure; I50.9 Heart failure, unspecified; J44.9 Chronic obstructive pulmonary disease, unspecified; K21.9 Gastro-esophageal reflux disease without esophagitis; M19.90 Unspecified osteoarthritis, unspecified site; E03.9 Hypothyroidism, unspecified; Z87.891 Personal history of nicotine dependence; Z88.8 Allergy status to other drugs, medicaments and biological substances; Z88.5 Allergy status to narcotic agent; Z79.899 Other long term (current) drug therapy; Z79.82 Long term (current) use of aspirin
CPT/HCPCS: 36415; 71045; 71275; 80053; 81003; 83735; 83880; 84484; 85025; 85379; 85610; 85730; 87040; 93005; 96361; 96365; 96366; 96375; 99285; J1940; J3475; J3490; J7030; Q9967; 93010; 99283